=== PATIENT | male | born 1950 ===

== ENCOUNTER 2018-07-31 20:11 | Inpatient (IN) | payer MEDICARE ==
[~2018-07-31] VITALS: Ht 182.9 cm; Wt 93.9 kg
[2018-07-31 20:48] LABS: BASOPHILS ABSOLUTE AUTO 0.04 K/mm3 (0.00-0.23); BASOPHILS PERCENT AUTO 1 % (0-2); EOSINOPHILS ABSOLUTE AUTO 0.14 K/mm3 (0.00-0.68); EOSINOPHILS PERCENT AUTO 2 % (0-6); Hematocrit 38.7 % (37.0-53.0); Hemoglobin 13.3 g/dL (13.5-17.5); IMMATURE GRAN ABSOLUTE AUTO 0.02 K/mm3 (0.00-0.10); IMMATURE GRAN PERCENT AUTO 0 % (0-1); LYMPHOCYTES ABSOLUTE AUTO 2.34 K/mm3 (0.84-5.20); LYMPHOCYTES PERCENT AUTO 30 % (21-46); MONOCYTES ABSOLUTE AUTO 0.72 K/mm3 (0.16-1.47); MONOCYTES PERCENT AUTO 9 % (4-13); Mean Corpuscular HGB 29.8 pg (26.0-34.0); Mean Corpuscular HGB Conc 34.4 g/dL (31.5-36.5); Mean Corpuscular Volume 87 fL (80-100); Mean Platelet Volume 10.4 fL (9.1-12.4); NEUTROPHILS ABSOLUTE AUTO 4.54 K/mm3 (1.96-9.15); NEUTROPHILS PERCENT AUTO 58 % (41-73); Platelet Count 134 K/mm3 (150-400); RDW Coefficient Variation 12.5 % (11.7-14.2); RDW Standard Deviation 39.8 fL (35.1-46.3); Red Blood Cell Count 4.46 M/mm3 (4.30-5.90)
[2018-07-31 20:59] LABS: International Normalized Ratio 1.06; Prothrombin Time Results 11.2 Sec (9.7-11.5)
[2018-07-31] MEDS ORDERED: LISI20 PO (21:01)
[2018-07-31 21:51] LABS: Source, Urine Clean Catch
[2018-07-31 21:52] LABS: Albumin, Blood 3.5 g/dL (3.4-5.0); Bilirubin, Total 0.8 mg/dL (0.1-1.0); Bun/Creatinine Ratio 14.4 (12.0-20.0); Calcium, Blood 8.7 mg/dL (8.5-10.1); Creatinine, Blood 1.53 mg/dL (0.60-1.20); Globulin, Blood 3.6 g/dL (2.2-4.0); Potassium, Blood 3.9 mmol/L (3.5-5.5); Total Protein, Blood 7.1 g/dL (6.4-8.2)
[2018-07-31 21:59] LABS: Bilirubin, Urine Neg (Neg); Blood, Urine 2+ (Neg); Glucose Qualitative, Urine Neg (Neg); Ketones, Urine Neg (Neg); Leukocyte Esterase, Urine Neg (Neg); Nitrite, Urine Neg (Neg); Protein, Urine 3+ (Neg); Specific Gravity, Urine 1.005 (1.003-1.022); Urobilinogen, Urine NORM (Normal)
[2018-07-31 22:07] LABS: Appearance, Urine Clear (Clear); Color, Urine Yellow (P-Yellow)
[2018-07-31 22:08] LABS: Bacteria Not Seen /hpf; Red Blood Cells, Urine 0-2 /hpf (0-2); Squamous Epithelial Cells Not Seen /hpf (Few); White Blood Cells, Urine Not Seen /hpf (0-5)
[2018-07-31] MEDS ORDERED: ZOLP5 PO (23:45)
[2018-07-31] MEDS ORDERED: BAYER CHEWABLE81 MG PO (23:47)
[2018-07-31] MEDS ORDERED: METF500C PO (23:49)
[2018-08-01 05:08] LABS: Hematocrit 38.1 % (37.0-53.0); Hemoglobin 12.5 g/dL (13.5-17.5); Mean Corpuscular HGB 29.3 pg (26.0-34.0); Mean Corpuscular HGB Conc 32.8 g/dL (31.5-36.5); Mean Corpuscular Volume 89 fL (80-100); RDW Coefficient Variation 12.7 % (11.7-14.2); RDW Standard Deviation 41.8 fL (35.1-46.3); Red Blood Cell Count 4.27 M/mm3 (4.30-5.90); White Blood Cell Count 6.96 K/mm3 (4.00-11.30)
[2018-08-01 05:17] LABS: Platelet Count 117 K/mm3 (150-400)
[2018-08-01 05:40] LABS: Albumin, Blood 3.1 g/dL (3.4-5.0); Bilirubin, Total 0.8 mg/dL (0.1-1.0); Bun/Creatinine Ratio 12.9 (12.0-20.0); Calcium, Blood 8.1 mg/dL (8.5-10.1); Creatinine, Blood 1.39 mg/dL (0.60-1.20); Globulin, Blood 3.1 g/dL (2.2-4.0); Total Protein, Blood 6.2 g/dL (6.4-8.2)
--- NOTE | 2018-08-01 05:46 | NUR ---
SHIFT SUMMARY PT HAD DIFFICULTY FALLING ASLEEP EVEN AFTER ADMINISTERING AMBIEN PER ORDERS, PT FINALLY FELL ASLEEP THIS AM AROUND 0330. PT IS AOX4 W/SLURRED SPEECH. PT GAIT IS UNSTEADY & PT REPORTS FEELING DIZZY, PT SBA W/AMBULATION FOR SAFETY. DENIES N/V OR SOB. REPORTS 5/10 PAIN IN BACK OF HEAD/NECK. CALL LIGHT IN REACH & GIRLFRIEND @BEDSIDE.
--- NOTE | 2018-08-01 11:09 | NUR ---
ECHOCARDIOGRAM COMPLETE
--- NOTE | 2018-08-01 18:26 | NUR ---
SHIFT SUMMARY NO ACUTE CHANGES. PATIENT HAD ECHOCARDIOGRAM AND MRI TODAY. PATIENT CONTINUES TO HAVE SLURRED SPEECH AND UNSTEADY GAIT BUT THE SEVERITY HAS NOT INCREASED. SPEECH EVAL DONE TODAY. GIRLFRIEND IN ROOM MOST OF DAY. CALL LIGHT IN REACH, WILL CONTINUE TO MONITOR.
[2018-08-02 05:04] LABS: BASOPHILS ABSOLUTE AUTO 0.04 K/mm3 (0.00-0.23); BASOPHILS PERCENT AUTO 1 % (0-2); EOSINOPHILS ABSOLUTE AUTO 0.12 K/mm3 (0.00-0.68); EOSINOPHILS PERCENT AUTO 2 % (0-6); Hematocrit 37.3 % (37.0-53.0); Hemoglobin 12.3 g/dL (13.5-17.5); IMMATURE GRAN ABSOLUTE AUTO 0.01 K/mm3 (0.00-0.10); IMMATURE GRAN PERCENT AUTO 0 % (0-1); LYMPHOCYTES ABSOLUTE AUTO 1.14 K/mm3 (0.84-5.20); LYMPHOCYTES PERCENT AUTO 18 % (21-46); MONOCYTES ABSOLUTE AUTO 0.72 K/mm3 (0.16-1.47); MONOCYTES PERCENT AUTO 12 % (4-13); Mean Corpuscular HGB 29.1 pg (26.0-34.0); Mean Corpuscular Volume 88 fL (80-100); Mean Platelet Volume 9.9 fL (9.1-12.4); NEUTROPHILS ABSOLUTE AUTO 4.25 K/mm3 (1.96-9.15); NEUTROPHILS PERCENT AUTO 68 % (41-73); Platelet Count 120 K/mm3 (150-400); RDW Coefficient Variation 12.4 % (11.7-14.2); RDW Standard Deviation 40.9 fL (35.1-46.3); Red Blood Cell Count 4.22 M/mm3 (4.30-5.90); White Blood Cell Count 6.28 K/mm3 (4.00-11.30)
[2018-08-02 05:34] LABS: Alanine Aminotransfer (ALT/SGP 60 U/L (12-78); Albumin, Blood 3.4 g/dL (3.4-5.0); Albumin/Globulin Ratio 1.1 (0.8-1.8); Alk Phos 88 U/L (50-136); Anion Gap 7 mmol/L (6-16); Aspartate Aminotrans (AST/SGOT 70 U/L (12-37); Bilirubin, Total 1.4 mg/dL (0.1-1.0); Blood Urea Nitrogen 13 mg/dL (8-24); Bun/Creatinine Ratio 9.2 (12.0-20.0); CHOL/HDL RATIO 4.5; CO2, Blood 24 mmol/L (21-32); Calcium, Blood 8.3 mg/dL (8.5-10.1); Chloride, Blood 111 mmol/L (98-108); Cholesterol 126 mg/dL (50-200); Creatinine, Blood 1.41 mg/dL (0.60-1.20); Globulin, Blood 3.2 g/dL (2.2-4.0); Glomerular Filtration Rate 53 (60-); Glucose, Blood 117 mg/dL (70-99); HDL Cholesterol 28 mg/dL (>39); LDL/HDL RATIO 2.2; Low Density Lipoprotein Chol 61 mg/dL (0-110); Magnesium, Blood 1.9 mg/dL (1.6-2.4); Potassium, Blood 3.9 mmol/L (3.5-5.5); Sodium, Blood 142 mmol/L (136-145); Total Protein, Blood 6.6 g/dL (6.4-8.2); Triglycerides 187 mg/dL (30-160); Very Low Density Lipoprot Chol 37 mg/dL (6-32)
--- NOTE | 2018-08-02 05:50 | NUR ---
SHIFT SUMMARY PT REPORTS HE SLEPT WELL T/O NIGHT AFTER TAKING AMBIEN PER ORDERS. AOX4. VSS. DENIES N/V OR SOB. PT REPORTS 6/10 PAIN IN BACK OF NECK, ALONG W/CHRONIC JOINT PAIN & BACK PAIN, MEDICATED W/TYLENOL 1X PER ORDERS. PT & GIRLFRIEND REPORT THEY FEEL SLURRED SPEECH HAS IMPROVED THIS AM. PT STILL HAS UNSTEADY GAIT & IS A SBA W/AMBULATION. CALL LIGHT IN REACH & BED IN LOWEST POSITION.
[2018-08-02] MEDS ORDERED: ATOR40TA PO (12:38)
[2018-08-02] MEDS ORDERED: CLOP75 PO (12:38)
--- NOTE | 2018-08-02 12:57 | NUR ---
SUMMARY/DISCHARGE PT DISCHARGED TO HOME, PT AND SIGNIFICANT OTHER VERBALIZED UNDERSTANDING OF DISCHARGE INSTRUCTIONS REGARDING MEDICATIONS AND FOLLOW UP APPOINTMENTS, PT TAKEN OUT SAFELY VIA WHEELCHAIR
== END 2018-08-02 14:15 | disposition home or self-care (01) | DRG 65 ==
LOC: ER 20:11 → MEDS 20:12 → ER 20:12 → MEDS 23:34 → ENPENDDIS 08-02 12:35 → MEDS 08-02 14:15
PROVIDERS: Emergency Medicine; Internal Medicine; ADMIT Internal Medicine
DX: I63.9 Cerebral infarction, unspecified (principal); I69.354 Hemiplegia and hemiparesis following cerebral infarction affecting left non-dominant side; R47.81 Slurred speech; F17.210 Nicotine dependence, cigarettes, uncomplicated; E11.22 Type 2 diabetes mellitus with diabetic chronic kidney disease; I12.9 Hypertensive chronic kidney disease with stage 1 through stage 4 chronic kidney disease, or unspecified chronic kidney disease; N18.9 Chronic kidney disease, unspecified; Z79.82 Long term (current) use of aspirin; Z79.899 Other long term (current) drug therapy; Z88.1 Allergy status to other antibiotic agents
CPT/HCPCS: 36415; 70450; 70496; 70498; 70551; 80053; 80061; 81001; 82947; 83735; 84443; 85025; 85027; 85610; 92610; 93005; 93010; 93306; 96361; 96372; 96374; 96375; 99285-25; G0378; G0480; J1650; J7030; Q9967

== ENCOUNTER 2018-09-08 22:37 | Observation (INO) | payer MEDICARE ==
[~2018-09-08] VITALS: Ht 188 cm; Wt 94.0 kg
[~2018-09-08 22:37] MED LIST: ATOR40TA PO; BAYER CHEWABLE81 MG PO; CLOP75 PO; LISI20 PO; METF500C PO; ZOLP5 PO
[2018-09-08] MEDS ORDERED: AMLO10 PO (22:49)
[2018-09-08 23:01] LABS: BASOPHILS ABSOLUTE AUTO 0.03 K/mm3 (0.00-0.23); BASOPHILS PERCENT AUTO 0 % (0-2); EOSINOPHILS ABSOLUTE AUTO 0.03 K/mm3 (0.00-0.68); EOSINOPHILS PERCENT AUTO 0 % (0-6); Hematocrit 38.6 % (37.0-53.0); Hemoglobin 13.1 g/dL (13.5-17.5); IMMATURE GRAN ABSOLUTE AUTO 0.04 K/mm3 (0.00-0.10); IMMATURE GRAN PERCENT AUTO 0 % (0-1); LYMPHOCYTES ABSOLUTE AUTO 1.96 K/mm3 (0.84-5.20); LYMPHOCYTES PERCENT AUTO 15 % (21-46); MONOCYTES PERCENT AUTO 9 % (4-13); Mean Corpuscular HGB 29.4 pg (26.0-34.0); Mean Corpuscular HGB Conc 33.9 g/dL (31.5-36.5); Mean Corpuscular Volume 87 fL (80-100); NEUTROPHILS ABSOLUTE AUTO 9.48 K/mm3 (1.96-9.15); NEUTROPHILS PERCENT AUTO 75 % (41-73); Platelet Count 117 K/mm3 (150-400); RDW Coefficient Variation 12.4 % (11.7-14.2); RDW Standard Deviation 39.8 fL (35.1-46.3); Red Blood Cell Count 4.45 M/mm3 (4.30-5.90); White Blood Cell Count 12.74 K/mm3 (4.00-11.30)
[2018-09-08 23:15] LABS: Albumin, Blood 3.1 g/dL (3.4-5.0); Albumin/Globulin Ratio 0.8 (0.8-1.8); Bilirubin, Total 1.8 mg/dL (0.1-1.0); Bun/Creatinine Ratio 16.8 (12.0-20.0); Calcium, Blood 8.7 mg/dL (8.5-10.1); Creatinine, Blood 1.31 mg/dL (0.60-1.20); Globulin, Blood 3.9 g/dL (2.2-4.0); Potassium, Blood 3.6 mmol/L (3.5-5.5)
[2018-09-09 03:04] LABS: Influenza A Negative (NEGATIVE); Influenza B Negative (NEGATIVE)
[2018-09-09 09:02] LABS: Source, Urine Catheter
[2018-09-09 09:11] LABS: Appearance, Urine Clear (Clear); Bilirubin, Urine Neg (Neg); Blood, Urine 3+ (Neg); Color, Urine Yellow (P-Yellow); Glucose Qualitative, Urine Neg (Neg); Ketones, Urine Neg (Neg); Leukocyte Esterase, Urine Neg (Neg); Nitrite, Urine Neg (Neg); Protein, Urine 4+ (Neg); Specific Gravity, Urine 1.015 (1.003-1.022); Urobilinogen, Urine NORM (Normal)
[2018-09-09 09:28] LABS: Bacteria Rare /hpf; Squamous Epithelial Cells Rare /hpf (Few); White Blood Cells, Urine 0-2 /hpf (0-5)
[2018-09-09 11:16] LABS: Hematocrit 37.4 % (37.0-53.0); Hemoglobin 12.5 g/dL (13.5-17.5); Mean Corpuscular HGB 29.1 pg (26.0-34.0); Mean Corpuscular HGB Conc 33.4 g/dL (31.5-36.5); Mean Corpuscular Volume 87 fL (80-100); Mean Platelet Volume 10.2 fL (9.1-12.4); Platelet Count 115 K/mm3 (150-400); RDW Coefficient Variation 12.6 % (11.7-14.2); RDW Standard Deviation 40.3 fL (35.1-46.3); Red Blood Cell Count 4.29 M/mm3 (4.30-5.90); White Blood Cell Count 11.01 K/mm3 (4.00-11.30)
[2018-09-09 11:26] LABS: Alanine Aminotransfer (ALT/SGP 36 U/L (12-78); Albumin, Blood 2.7 g/dL (3.4-5.0); Albumin/Globulin Ratio 0.7 (0.8-1.8); Alk Phos 95 U/L (50-136); Anion Gap 8 mmol/L (6-16); Aspartate Aminotrans (AST/SGOT 27 U/L (12-37); Bilirubin, Total 1.9 mg/dL (0.1-1.0); Blood Urea Nitrogen 19 mg/dL (8-24); Bun/Creatinine Ratio 15.3 (12.0-20.0); CO2, Blood 25 mmol/L (21-32); Calcium, Blood 8.3 mg/dL (8.5-10.1); Chloride, Blood 109 mmol/L (98-108); Creatinine, Blood 1.24 mg/dL (0.60-1.20); Globulin, Blood 3.9 g/dL (2.2-4.0); Glomerular Filtration Rate >60 (60-); Glucose, Blood 123 mg/dL (70-99); Potassium, Blood 3.6 mmol/L (3.5-5.5); Sodium, Blood 142 mmol/L (136-145); Total Protein, Blood 6.6 g/dL (6.4-8.2)
[2018-09-09] MEDS ORDERED: ESCI10 PO (12:52)
--- NOTE | 2018-09-09 17:52 | NUR ---
SHIFT SUMMARY RECEIVED HANDOFF FROM ER NURSE BREANNA. PT ADMITTED FOR WEAKNESS/DYSPNEA ON EXERTION. POSSIBLE PNEUMONIA IN THE LEFT LOWER LOBE. PT ON LAVAQUIN/FLAGYL EMPIRIC IV ANTIBIOTICS. RECENT HX OF STROKE. HX: HTN, CKD, DM2 (METFORMIN [place]), SMOKER (2 CIGARETTES PER DAY). HE IS INDEPENDENT IN ROOM AND TO BATHROOM. HE IS ACHS ON LOW SLIDING SCALE. HE IS ON DYSPHAGIA PRECAUTIONS DUE TO SPEECH EVAL: NO STRAWS, SOFT/BITE SIZE DIET. FAMILY REPORTS HE HAS BEEN CHOKING SINCE HIS STROKE. TOMORROW PT, OT, AND ST WILL EVALUATE. HE IS ON LOVENOX FOR DVT PREVENTION. HE IS A FULL CODE. HE HAS A 20 GAUGE IV IN THE LEFT FOREARM.
[2018-09-09 18:18] LABS: Source, Urine Clean Catch
[2018-09-09 18:22] LABS: Bilirubin, Urine Neg (Neg); Blood, Urine 4+ (Neg); Color, Urine Yellow (P-Yellow); Glucose Qualitative, Urine 2+ (Neg); Ketones, Urine 1+ (Neg); Leukocyte Esterase, Urine 1+ (Neg); Nitrite, Urine Neg (Neg); Protein, Urine 4+ (Neg); Urobilinogen, Urine NORM (Normal)
[2018-09-09 19:12] LABS: Appearance, Urine Hazy (Clear)
[2018-09-09 19:13] LABS: Bacteria Few /hpf; Squamous Epithelial Cells Few /hpf (Few); White Blood Cells, Urine 0-2 /hpf (0-5)
[2018-09-10 05:21] LABS: BASOPHILS ABSOLUTE AUTO 0.03 K/mm3 (0.00-0.23); BASOPHILS PERCENT AUTO 0 % (0-2); EOSINOPHILS ABSOLUTE AUTO 0.14 K/mm3 (0.00-0.68); EOSINOPHILS PERCENT AUTO 2 % (0-6); Hematocrit 35.3 % (37.0-53.0); Hemoglobin 11.9 g/dL (13.5-17.5); IMMATURE GRAN ABSOLUTE AUTO 0.03 K/mm3 (0.00-0.10); IMMATURE GRAN PERCENT AUTO 0 % (0-1); LYMPHOCYTES ABSOLUTE AUTO 2.63 K/mm3 (0.84-5.20); LYMPHOCYTES PERCENT AUTO 28 % (21-46); MONOCYTES ABSOLUTE AUTO 1.03 K/mm3 (0.16-1.47); MONOCYTES PERCENT AUTO 11 % (4-13); Mean Corpuscular HGB 28.7 pg (26.0-34.0); Mean Corpuscular HGB Conc 33.7 g/dL (31.5-36.5); Mean Corpuscular Volume 85 fL (80-100); Mean Platelet Volume 10.3 fL (9.1-12.4); NEUTROPHILS PERCENT AUTO 59 % (41-73); Platelet Count 131 K/mm3 (150-400); RDW Coefficient Variation 12.5 % (11.7-14.2); RDW Standard Deviation 38.6 fL (35.1-46.3); Red Blood Cell Count 4.14 M/mm3 (4.30-5.90); White Blood Cell Count 9.46 K/mm3 (4.00-11.30)
[2018-09-10 05:55] LABS: Bun/Creatinine Ratio 16.2 (12.0-20.0); Calcium, Blood 8.3 mg/dL (8.5-10.1); Creatinine, Blood 1.36 mg/dL (0.60-1.20); Potassium, Blood 3.7 mmol/L (3.5-5.5)
--- NOTE | 2018-09-10 06:16 | NUR ---
SHIFT SUMMARY A/O, ABLE TO MAKE NEEDS KNOWN. COOPERATIVE WITH CARE. CALLS AND ANSWERS QUESTIONS APPROPRIATELY. NO C/O PAIN/DISCOMFORT. INDEPENDENT IN THE ROOM. AT BEDSIDE. HYPERTENSIVE THIS AM; HOWEVER, ON TREND WITH PREVIOUS PRESSURES. APPEARED TO REST MUCH OF SHIFT. NO ACUTE CHANGES NOTED OVERNIGHT. BED IN LOWEST POSITION. CALL LIGHT AND BELONGINGS WITHIN REACH. WCTM. REPORT TO ONCOMING RN.
--- NOTE | 2018-09-10 14:20 | NUR ---
MEDICATIONS CORRECTED BETWEEN PATIENT AND AND ARE CURRENTLY ACCURATE. AMBULATING WITH IN HALLS OFF AND ON. PLEASANT. PREFERS TO GIVE INSULIN HIMSELF. SUPPORTIVE AT SIDE.
--- NOTE | 2018-09-11 04:30 | NUR ---
SHIFT SUMMARY A/O X4, ABLE TO MAKE NEEDS KNOWN. COOPERATIVE WITH CARE. CALLS AND ANSWERS QUESTIONS APPROPRIATELY. NO C/O PAIN/DISCOMFORT. INDEPENDENT IN ROOM. S/O AT BEDSIDE. REMAINS HYPERTENSIVE. BLOOD SUGAR 137; NO COVERAGE INDICATED. ASKED THAT HE NOT BE DISTURBED T/O NIGHT. APPEARED TO REST MUCH OF SHIFT. NO ACUTE CHANGES NOTED. BED IN LOWEST POSITION. CALL LIGHT AND BELONGINGS WITHIN REACH. WCTM. REPORT TO ONCOMING RN.
[2018-09-11 05:48] LABS: Bun/Creatinine Ratio 15.7 (12.0-20.0); Calcium, Blood 8.5 mg/dL (8.5-10.1); Creatinine, Blood 1.34 mg/dL (0.60-1.20)
[2018-09-11] MEDS ORDERED: LEVFLO500 PO (11:09)
--- NOTE | 2018-09-11 11:35 | NUR ---
DISCHARGE NOTE PT DISCHARGED TO HOME WITH SPOUSE PRESENT. PT LEFT ROOM WITH WHEELCHAIR AT 1135 WITH HEAD OF OPERATION AND LOGISTICS ESCORT. PT EDUCATED ON NEW MEDICATIONS, PREVENTING FALLS AT HOME AND DECONDITIONING. PT INSTRUCTED AND AGREES TO LOTTERY MANAGER MEDS FROM PHARMACY. IV DC'D AND BELONGINGS RETURNED.
== END 2018-09-11 11:34 | disposition home or self-care (01) ==
LOC: ER 22:37 → ERHOLD 22:38 → MEDS 22:38 → ER 09-09 01:55 → MEDS 09-09 01:55 → ERHOLD 09-09 01:55 → MEDS 09-09 16:44 → ERHOLD 09-09 16:50 → MEDS 09-09 16:50 → ENPENDDIS 09-11 10:30 → MEDS 09-11 11:34
PROVIDERS: Emergency Medicine; Hospitalist; ADMIT Internal Medicine
DX: J18.1 Lobar pneumonia, unspecified organism (principal); R53.1 Weakness; I12.9 Hypertensive chronic kidney disease with stage 1 through stage 4 chronic kidney disease, or unspecified chronic kidney disease; E11.22 Type 2 diabetes mellitus with diabetic chronic kidney disease; N18.3 Chronic kidney disease, stage 3 (moderate); Z86.73 Personal history of transient ischemic attack (TIA), and cerebral infarction without residual deficits; Z79.899 Other long term (current) drug therapy; Z79.82 Long term (current) use of aspirin; Z79.02 Long term (current) use of antithrombotics/antiplatelets; Z88.1 Allergy status to other antibiotic agents; F17.210 Nicotine dependence, cigarettes, uncomplicated
CPT/HCPCS: 36415; 70450; 71046; 80048; 80053; 81001; 82947; 83605; 84145; 85025; 85027; 87040; 87086; 87804; 92526; 92610; 93005; 93010; 96361; 96365; 96366; 96372; 96372-59; 96375; 96376; 97116; 97161; 97165; 99285-25; G0378; J1650; J1956; J2543; J7030; J7050

== ENCOUNTER 2018-12-28 22:06 | Inpatient (IN) | payer MEDICARE ==
[~2018-12-28] VITALS: Ht 188 cm; Wt 89.3 kg
[~2018-12-28 22:06] MED LIST changes: +AMLO10 PO; +Aspirin EC81 MG PO; -BAYER CHEWABLE81 MG PO; +ESCI10 PO; +LEVFLO500 PO
[2018-12-28 23:20] LABS: BASOPHILS ABSOLUTE AUTO 0.04 K/mm3 (0.00-0.23); BASOPHILS PERCENT AUTO 0 % (0-2); EOSINOPHILS ABSOLUTE AUTO 0.45 K/mm3 (0.00-0.68); EOSINOPHILS PERCENT AUTO 2 % (0-6); Hematocrit 38.8 % (37.0-53.0); Hemoglobin 12.8 g/dL (13.5-17.5); IMMATURE GRAN PERCENT AUTO 1 % (0-1); LYMPHOCYTES ABSOLUTE AUTO 1.77 K/mm3 (0.84-5.20); LYMPHOCYTES PERCENT AUTO 9 % (21-46); MONOCYTES ABSOLUTE AUTO 1.36 K/mm3 (0.16-1.47); MONOCYTES PERCENT AUTO 7 % (4-13); Mean Corpuscular HGB 28.3 pg (26.0-34.0); Mean Corpuscular Volume 86 fL (80-100); Mean Platelet Volume 10.6 fL (9.1-12.4); NEUTROPHILS ABSOLUTE AUTO 15.11 K/mm3 (1.96-9.15); NEUTROPHILS PERCENT AUTO 80 % (41-73); Platelet Count 202 K/mm3 (150-400); RDW Coefficient Variation 13.3 % (11.7-14.2); RDW Standard Deviation 41.3 fL (35.1-46.3); Red Blood Cell Count 4.52 M/mm3 (4.30-5.90); White Blood Cell Count 18.83 K/mm3 (4.00-11.30)
[2018-12-28 23:42] LABS: Albumin, Blood 3.2 g/dL (3.4-5.0); Albumin/Globulin Ratio 0.8 (0.8-1.8); Bilirubin, Total 1.6 mg/dL (0.1-1.0); Calcium, Blood 9.2 mg/dL (8.5-10.1); Creatinine, Blood 3.01 mg/dL (0.60-1.20); Globulin, Blood 4.1 g/dL (2.2-4.0); Potassium, Blood 4.7 mmol/L (3.5-5.5); Total Protein, Blood 7.3 g/dL (6.4-8.2)
[2018-12-29 02:25] LABS: Source, Urine Clean Catch
[2018-12-29 02:27] LABS: Bilirubin, Urine Neg (Neg); Blood, Urine 2+ (Neg); Glucose Qualitative, Urine 1+ (Neg); Ketones, Urine Neg (Neg); Leukocyte Esterase, Urine Neg (Neg); Nitrite, Urine Neg (Neg); Protein, Urine 4+ (Neg); Urobilinogen, Urine NORM (Normal)
[2018-12-29 02:35] LABS: Color, Urine Yellow (P-Yellow)
[2018-12-29 02:36] LABS: Amorphous Light (0-Heavy); Appearance, Urine Hazy (Clear); Bacteria Rare /hpf; Mucus Light (0-Heavy); Red Blood Cells, Urine 0-2 /hpf (0-2); Squamous Epithelial Cells Few /hpf (Few)
[2018-12-29 02:37] LABS: Hyaline Casts 25-50 /lpf (0-2); Spermatozoa Many /hpf
[2018-12-29 06:29] LABS: BASOPHILS ABSOLUTE AUTO 0.02 K/mm3 (0.00-0.23); BASOPHILS PERCENT AUTO 0 % (0-2); EOSINOPHILS ABSOLUTE AUTO 0.15 K/mm3 (0.00-0.68); EOSINOPHILS PERCENT AUTO 1 % (0-6); Hematocrit 36.3 % (37.0-53.0); Hemoglobin 11.9 g/dL (13.5-17.5); IMMATURE GRAN ABSOLUTE AUTO 0.07 K/mm3 (0.00-0.10); IMMATURE GRAN PERCENT AUTO 1 % (0-1); LYMPHOCYTES ABSOLUTE AUTO 1.71 K/mm3 (0.84-5.20); LYMPHOCYTES PERCENT AUTO 12 % (21-46); MONOCYTES PERCENT AUTO 8 % (4-13); Mean Corpuscular HGB 28.1 pg (26.0-34.0); Mean Corpuscular HGB Conc 32.8 g/dL (31.5-36.5); Mean Corpuscular Volume 86 fL (80-100); Mean Platelet Volume 10.5 fL (9.1-12.4); NEUTROPHILS ABSOLUTE AUTO 11.09 K/mm3 (1.96-9.15); NEUTROPHILS PERCENT AUTO 78 % (41-73); Platelet Count 167 K/mm3 (150-400); RDW Coefficient Variation 13.4 % (11.7-14.2); RDW Standard Deviation 41.2 fL (35.1-46.3); Red Blood Cell Count 4.23 M/mm3 (4.30-5.90); White Blood Cell Count 14.24 K/mm3 (4.00-11.30)
[2018-12-29] MEDS ORDERED: ATOR40TA PO (06:40)
[2018-12-29] MEDS ORDERED: TOUJEO SOL300 UNIT/1 SC (06:41)
[2018-12-29 06:46] LABS: Albumin, Blood 2.8 g/dL (3.4-5.0); Albumin/Globulin Ratio 0.8 (0.8-1.8); Bilirubin, Total 1.6 mg/dL (0.1-1.0); Bun/Creatinine Ratio 15.8 (12.0-20.0); Calcium, Blood 8.6 mg/dL (8.5-10.1); Creatinine, Blood 3.23 mg/dL (0.60-1.20); Globulin, Blood 3.7 g/dL (2.2-4.0); Potassium, Blood 4.5 mmol/L (3.5-5.5); Total Protein, Blood 6.5 g/dL (6.4-8.2); Triglycerides 94 mg/dL (30-160)
--- NOTE | 2018-12-29 07:56 | NUR ---
12/29/18 0645 PT ARRIVED TO FLOOR AT 0540 FROM ER. NO FAMILY WITH HIM WHEN HE ARRIVED. RN ATTEMPTED TO COMPLETE ADMISSION PAPERWORK BUT PT DID NOT KNOW MEDS HE TAKES AND STATED TO "ASK MY ". HERE ON AND OFF. WILL INFORM DAY RN.
--- NOTE | 2018-12-29 16:08 | NUR ---
SHIFT SUMMARY. A&OX3, INDEPENDENT IN ROOM, GIRLFRIEND IN ROOM. PT C/O LUQ ABD PAIN TWICE THIS SHIFT, MANAGED WELL WITH CURRENT ORDERS. NO N/V/D. NO BM THIS SHIFT. PT SHOWERED THIS AFTERNOON INDEPENDENTLY. PT TOLERATING CLEAR LIQUIDS AT LUNCH WITHOUT ISSUE. CONTINUES WITH NS IV AT 125/HR. NO NEW CHANGES OR CONCERNS. PT REPORTS FEELING MUCH BETTER BY THIS AFTERNOON.
--- NOTE | 2018-12-30 04:28 | NUR ---
SHIFT SUMMARY PT RESTING QUIETLY AT START OF SHIFT. PT'S RETURNED TO RM DURING SHIFT REPORT. PT ADMITTED FOR PANCREATITIS, ABD PAIN, N/V/D, AND ANGÉLICA. PT TOLERATING CL DIET W/O NAUSEA OR VOMITING. PT VERY WEAK, DECONDITIONED. UNABLE TO EVEN GET UP TO EOB W/O FALLING OVER. PT WANTING TO TAKE ANOTHER SHOWER TONIGHT, BECAUSE HE SOILED HIMSELF WITH THE URINAL. BUT PT VERY UNSTEADY AND WEAK. PT BECAME IRRITABLE AND IMPULSIVE FOR A WHILE AT START OF SHIFT, REFUSING 'S ASSISTANSE WELL. PT FINALLY AGREEABLE TO ASSISTING HIM WITH CLEAN CLOTHES. PT LATER ATTEMPTING TO BE NONCOMPLIANT WITH INSULIN AGAIN AT HS, TAKING INSULIN PEN AND STARTING TO INCREASE NUMBER OF UNITS TO BE GIVEN. ATTEMPTED TO EDU PT; GRUMBLING, PT AGREED TO ORDERED DOSE. PT ASKED NOT TO BE WOKE FOR CARE UNTIL 0530 AND HAS CONTINUED TO REST WELL, SINCE GOING TO SLEEP. CALL LT IN REACH. SLEEPING IN RM AT BS.
[2018-12-30 05:55] LABS: BASOPHILS ABSOLUTE AUTO 0.02 K/mm3 (0.00-0.23); BASOPHILS PERCENT AUTO 0 % (0-2); EOSINOPHILS ABSOLUTE AUTO 0.04 K/mm3 (0.00-0.68); EOSINOPHILS PERCENT AUTO 0 % (0-6); Hemoglobin 10.6 g/dL (13.5-17.5); IMMATURE GRAN ABSOLUTE AUTO 0.13 K/mm3 (0.00-0.10); IMMATURE GRAN PERCENT AUTO 1 % (0-1); LYMPHOCYTES ABSOLUTE AUTO 1.49 K/mm3 (0.84-5.20); LYMPHOCYTES PERCENT AUTO 13 % (21-46); MONOCYTES ABSOLUTE AUTO 1.09 K/mm3 (0.16-1.47); MONOCYTES PERCENT AUTO 9 % (4-13); Mean Corpuscular HGB 28.3 pg (26.0-34.0); Mean Corpuscular HGB Conc 33.1 g/dL (31.5-36.5); Mean Corpuscular Volume 86 fL (80-100); Mean Platelet Volume 10.5 fL (9.1-12.4); NEUTROPHILS ABSOLUTE AUTO 9.19 K/mm3 (1.96-9.15); NEUTROPHILS PERCENT AUTO 77 % (41-73); Platelet Count 130 K/mm3 (150-400); Red Blood Cell Count 3.74 M/mm3 (4.30-5.90); White Blood Cell Count 11.96 K/mm3 (4.00-11.30)
[2018-12-30 06:28] LABS: Albumin, Blood 2.6 g/dL (3.4-5.0); Albumin/Globulin Ratio 0.7 (0.8-1.8); Bilirubin, Total 2.4 mg/dL (0.1-1.0); Calcium, Blood 8.6 mg/dL (8.5-10.1); Creatinine, Blood 1.94 mg/dL (0.60-1.20); Globulin, Blood 3.8 g/dL (2.2-4.0); Potassium, Blood 3.9 mmol/L (3.5-5.5); Total Protein, Blood 6.4 g/dL (6.4-8.2)
[2018-12-30 13:03] LABS: Adenovirus F 40/41 Not Detected (NOT DETECT); Astrovirus Not Detected (NOT DETECT); Campylobacter Sp Not Detected (NOT DETECT); Cryptosporidium Not Detected (NOT DETECT); Cyclospora Cayetanensis Not Detected (NOT DETECT); E. Coli O157 Not Detected (NOT DETECT); Entamoeba Histolytica Not Detected (NOT DETECT); Enteroaggregative E. coli-EAEC Not Detected (NOT DETECT); Enteropathogenic E. coli-EPEC Not Detected (NOT DETECT); Enterotoxigenic E. coli-ETEC Not Detected (NOT DETECT); Giardia Lamblia Not Detected (NOT DETECT); Norovirus GI/GII Not Detected (NOT DETECT); Plesiomonas Shigelloides Not Detected (NOT DETECT); Rotavirus A Not Detected (NOT DETECT); Salmonella Sp Not Detected (NOT DETECT); Sapovirus Not Detected (NOT DETECT); Shiga Toxin-prod E. coli-STEC Not Detected (NOT DETECT); Shigella/Enteroin E. coli-EIEC Not Detected (NOT DETECT); Vibrio Cholerae Not Detected (NOT DETECT); Vibrio Sp Not Detected (NOT DETECT); Yersinia Enterocolitica Not Detected (NOT DETECT)
--- NOTE | 2018-12-30 16:40 | NUR ---
PT A/OX3, PLEASANT ANCD COOPERATIVE, THE PT IS UP WITH MINIMAL ASSIST TO THE BATHROOM, THE PT WAS UP IN THE ORANTES AMBULATING WITH THE PHYSICAL AND OCCUPATIONAL THERAPIST TODAY, THE PT REPORTED AND WAS MEDICATED FOR MILD PAIN WITH MEALS TODAY, THE PT DENIED ANY N/V, PT APPEARS TO BE BREATHING EASILY ON RA, PTS IS AT THE BEDSIDE, CALL LIGHT IN REACH WILL CONTINUE TO MONITOR AND ASSESS FOR CHANGES
--- NOTE | 2018-12-31 03:45 | NUR ---
SHIFT SUMMARY PT UP TO BTHRM AT START OF SHIFT WITH DIARRHEA. COMPLETE LINEN CHANGE DONE AGAIN, WELL CLOTHES. PT THEN WANTING TO TAKE ANOTHER SHOWER. IV SL AND WRAPPED FOR SHOWER. PT'S VERY HELPFUL IN ASSISTING PT WITH CARE. INCONTINENT OF BOWEL AND BLADDER SEVERAL TIMES THRU OUT THE SHIFT. MULTIPLE BED LINEN AND GOWN CHANGES. PT FREQUENTLY IRRITABLE, NOT WANTING TO BE COMPLIANT WITH CARE. PT ATTEMPTING TO INCREASE INSULIN DOSE AGAIN TONIGHT, TO A RANDOM NUMBER THAT HE FEELS IS ENOUGH. PT BECAME VERY AGITATED AGAIN TONIGHT OVER SCHEDULED INSULIN THRU OUT THE DAY. PT DID NOT DISCUSS WITH MD, DURING THE DAY, HIS CONCERN TO INCREASE INSULIN COVERAGE. DR CALEDRON NOTIFIED OF PT'S REQUEST REGARDING INSULIN. NEW ORDERS RECEIVED TO CHANGE TO HIGH SS COVERAGE AND PT TO DISCUSS INSULIN DOSE WITH DAY TIME MD. PT ALSO C/O BEING HUNGRY AND VERBALIZED HOW MANY DAYS HE HAS GONE WITHOUT FOOD AND BEEN ON LIQUID DIET. DR CALDERON NOTIFIED OF PT'S REQUEST FOR DIET CHANGE. NEW ORDERS RECEIVED. PT HAS CONTINUED TO BE INDEPENDENT IN RM AND TO BTHRM, IMPROVING IN STRENGTH A LITTLE MORE EACH DAY. PT COMPLAINING ABOUT IV PUMP MAKING NOISE AND NOT BEING ABLE TO SLEEP. PT WANTING IV SL. NS BAG COMPLETE AND PT WANTING "UNHOOKED". IV PRESENTLY SL PER PT REQUEST. PT CAN BE VERY IRRITABLE TO STAFF AND , WELL NONCOMPLIANT WITH CARE. CALL LT IN REACH. ABLE TO MAKE NEEDS KNOWN.
[2018-12-31 05:16] LABS: Hematocrit 30.6 % (37.0-53.0); Hemoglobin 9.9 g/dL (13.5-17.5); Mean Corpuscular HGB 27.7 pg (26.0-34.0); Mean Corpuscular HGB Conc 32.4 g/dL (31.5-36.5); Mean Corpuscular Volume 86 fL (80-100); Mean Platelet Volume 10.1 fL (9.1-12.4); Platelet Count 137 K/mm3 (150-400); RDW Coefficient Variation 12.8 % (11.7-14.2); RDW Standard Deviation 39.9 fL (35.1-46.3); Red Blood Cell Count 3.58 M/mm3 (4.30-5.90); White Blood Cell Count 10.71 K/mm3 (4.00-11.30)
[2018-12-31 05:39] LABS: Albumin, Blood 2.2 g/dL (3.4-5.0); Anion Gap 8 mmol/L (6-16); Blood Urea Nitrogen 23 mg/dL (8-24); Bun/Creatinine Ratio 15.4 (12.0-20.0); CO2, Blood 21 mmol/L (21-32); Chloride, Blood 110 mmol/L (98-108); Creatinine, Blood 1.49 mg/dL (0.60-1.20); Glomerular Filtration Rate 50 (60-); Glucose, Blood 191 mg/dL (70-99); Phosphorus, Blood 2.4 mg/dL (2.5-4.9); Potassium, Blood 3.7 mmol/L (3.5-5.5); Sodium, Blood 139 mmol/L (136-145)
--- NOTE | 2018-12-31 07:34 | NUR ---
ASSUMED CARE OF PT- RECIEVED REPORT FROM NIGHT CEDRIC MCKAY. PER REPORT PT ALERT AND ORIENTED. ALSO PER REPORT PT CAN BE INSISTENT WHEN HE WANTS A CHANGE TO HIS CARE, SUCH AN ADVANCE IN DIET, STAFF SPOKE TO THE PT ABOUT AN ADVANCE IN DIET CAUSING ABDOMINAL PAIN AND PT INSISTED IN AN INCREASE IN DIET TO LOW FAT ADA. AFTER EATING A SANDWITCH LAST NIGHT IT WAS REPORTED PT SUFFERED SOME DISCOMFORT. PER REPORT PT WANTED A CHANGE TO INSULIN, THIS WAS CHANGED FROM LOW SLIDING SCALE TO HIGH SLIDING SCALE. PRIOR TO THE CHANGE THE PT REQUESTED THAT STAFF GIVE HIM THE INSULIN PEN AND LET HIM DECIDE WHAT DOSE TO GIVE AND ADMINISTER IT HIMSELF, HE BECAME UPSET (PER REPORT) WHEN NURSING STAFF DECLINED TO DO THIS. BLOOD SUGAR IS 200 THIS MORNING.
--- NOTE | 2018-12-31 10:00 | NUR ---
Initial Visit: Called by pt's nurse, Latoya. She states that the pt and family is requesting to speak about advance directives. On arrival to room, pt is laying in bed with his arm over his face. He is telling me that he is highly irritated. He had a "terrible night." He reports 8 episodes of diarrhea overnight. His girlfriend is at bedside and would like to review directives. Provided POLST form and advance directive forms. Reviewed each. She is familiar with the advance directive; states that she has one at home for herself. Forms left with her. Instructed to call my office number or ask nurse to page me through [employer] if she has questions. Reviewed with nurse Latoya. She is getting an order for immodium or other to stop the diarrhea. Latoya does not have further concerns at this time.
--- NOTE | 2018-12-31 18:29 | NUR ---
SHIFT SUMMARY- PT HAS HAD NO ACUTE CHANGES T/O THE SHIFT, NEW CONSULT FOR GEN SURGERY WAS CALLED, DR LEES CAME TO SEE THE PT, NEW ORDER TO DC ASPIRIN, AND NPO FOR BREAKFAST. WILL PASS ON NPO AT MIDNIGHT. PT ALERT AND ORIENTED AND INDEPENDENT IN THE ROOM. NO CURRENT C/O PAIN. PT HAS ATTEMPTED TO SLEEP T/O THE SHIFT. PER PT SPOUSE PT HAD FREQUENT BMS T/O THE NIGHT. RECIEVED A OT ORDER FOR IMODIUM. PT HAS IV CURRENTLY RUNNING K-PHOS. PT REQUESTED TO BE DISCONNECTED STAFF SPOKE TO HIM ABOUT THE IMPORTANCE OF THE MEDICINE IT SHOULD BE DONE RUNNING BY 1999. PT WILL REQUEST TO GO OUT AT THAT TIME.
--- NOTE | 2019-01-01 04:45 | NUR ---
SHIFT SUMMARY PT HAD NO DIARRHEA NOTED THIS SHIFT. PT WAS ABLE TO GO OUTSIDE TO SMIKE AND WAS IN BETTER SPIRITS AFTERWARDS. PT HAS SLEPT SINCE GOING TO SMOKE. PT HAD NO ISSUES NOTED. PT CURRENTLY SLEEPING IN NO DISTRESS. CALL LIGHT IN REACH.
[2019-01-01 05:18] LABS: BASOPHILS ABSOLUTE AUTO 0.01 K/mm3 (0.00-0.23); BASOPHILS PERCENT AUTO 0 % (0-2); EOSINOPHILS ABSOLUTE AUTO 0.16 K/mm3 (0.00-0.68); EOSINOPHILS PERCENT AUTO 2 % (0-6); Hematocrit 31.2 % (37.0-53.0); Hemoglobin 10.3 g/dL (13.5-17.5); IMMATURE GRAN ABSOLUTE AUTO 0.03 K/mm3 (0.00-0.10); IMMATURE GRAN PERCENT AUTO 0 % (0-1); LYMPHOCYTES ABSOLUTE AUTO 1.66 K/mm3 (0.84-5.20); LYMPHOCYTES PERCENT AUTO 18 % (21-46); MONOCYTES ABSOLUTE AUTO 1.08 K/mm3 (0.16-1.47); MONOCYTES PERCENT AUTO 12 % (4-13); Mean Corpuscular HGB 27.7 pg (26.0-34.0); Mean Corpuscular Volume 84 fL (80-100); Mean Platelet Volume 9.8 fL (9.1-12.4); NEUTROPHILS ABSOLUTE AUTO 6.46 K/mm3 (1.96-9.15); NEUTROPHILS PERCENT AUTO 69 % (41-73); Platelet Count 164 K/mm3 (150-400); RDW Coefficient Variation 12.7 % (11.7-14.2); RDW Standard Deviation 38.6 fL (35.1-46.3); Red Blood Cell Count 3.72 M/mm3 (4.30-5.90)
[2019-01-01 05:39] LABS: Alanine Aminotransfer (ALT/SGP 77 U/L (12-78); Albumin, Blood 2.2 g/dL (3.4-5.0); Albumin/Globulin Ratio 0.6 (0.8-1.8); Alk Phos 178 U/L (50-136); Anion Gap 8 mmol/L (6-16); Aspartate Aminotrans (AST/SGOT 66 U/L (12-37); Bilirubin, Total 1.1 mg/dL (0.1-1.0); Blood Urea Nitrogen 17 mg/dL (8-24); Bun/Creatinine Ratio 12.9 (12.0-20.0); CO2, Blood 23 mmol/L (21-32); Calcium, Blood 8.2 mg/dL (8.5-10.1); Chloride, Blood 110 mmol/L (98-108); Creatinine, Blood 1.32 mg/dL (0.60-1.20); Globulin, Blood 3.8 g/dL (2.2-4.0); Glomerular Filtration Rate 57 (60-); Glucose, Blood 252 mg/dL (70-99); Phosphorus, Blood 2.9 mg/dL (2.5-4.9); Potassium, Blood 3.7 mmol/L (3.5-5.5); Sodium, Blood 141 mmol/L (136-145)
--- NOTE | 2019-01-01 07:43 | NUR ---
ASSUMED CARE OF PT- RECIEVED REPORT FROM NIGHT CEDRIC MCKEON. PER REPORT PT SLEPT WELL T/O THE NIGHT. NO C/O PAIN WERE NOTED. PER NOTE FROM DR LEES PT TP BE NPO AFTER DINNER FRIDAY NIGHT, PLAVIX AND ASPIRIN DC'D. HEPARIN TO CONTINUE UNTIL FRIDAY PRIOR TO PROCEDURE. DIET IS TO ADVANCE TOLLERATED PRIOR TO NPO.
--- NOTE | 2019-01-01 07:59 | NUR ---
SPOKE TO DR LEES- PER PLAN IS FOR PT TO GO FOR PROCEDURE ON FRIDAY, NPO WILL NOT BE UNTIL FRIDAY EVENING AFTER DINNER.
--- NOTE | 2019-01-01 16:31 | NUR ---
SHIFT SUMMARY- PT HAS HAD NO ACUTE CHANGES T/O THE SHIFT. PLAN IS FOR PT TO GO TO SURGERY ON FRIDAY. HEPARIN SHOULD BE HELD THE DAY OF THE PROCEDURE PER DR LEES. PT ALERT AND ORIENTED AND HAS THE CALL LIGHT IN REACH. PT VERY TIRED AND REQUESTS THAT ALL CARE BE GROUPED TOGETHER WHEN POSSIBLE. PT SO IS AT THE BEDSIDE AND ONLY LEAVES FOR BRIEF STENTS OF TIME. PT ABLE TO PERFORM MOST ADLS INDEPENDENTLY, SO HELPS HIM WHEN NEEDED. STARTED LANTUS INSULIN TODAY IN AN ATTEMPT TO BETTER CONTROL HIS BG. NO C/O PAIN T/O THE SHIFT.
--- NOTE | 2019-01-01 16:59 | NUR ---
PT REQUESTED PAIN MEDICATION- FENTANYL AVAILABLE IN PT EMAR. PT SPECIFICALLY STATED HE DOES NOT WANT IV PAIN MEDICATION AND ASKED FOR A PILL HE CAN TAKE. SPOKE TO DR IVERSON IN PERSON TO REQUEST SOME FORM OF PAIN MANAGEMENT THAT WAS NOT IV. SHE WILL REVIEW PT CHART. NO NEW ORDER AT THIS TIME.
--- NOTE | 2019-01-02 04:23 | NUR ---
SHIFT SUMMARY NO ACUTE CHANGES THIS SHIFT. PT OUTSIDE WITH FAMILY FOR START OF SHIFT. FOLLOWING, PT REQUESTED TO BE LEFT ALONE SO HE CAN SLEEP. SLEPT THROUGH MUCH OF THE NIGHT. ABD DISTENDED, PT DENIED ABD PAIN BUT REPORTED FEELING "BLOATED". VITAL SIGNS STABLE. PLAN FOR SURGERY FRIDAY. WILL CONTINUE TO MONITOR.
[2019-01-02 05:38] LABS: Hemoglobin 11.5 g/dL (13.5-17.5); Mean Corpuscular HGB Conc 32.9 g/dL (31.5-36.5); Mean Corpuscular Volume 85 fL (80-100); Platelet Count 194 K/mm3 (150-400); RDW Coefficient Variation 12.8 % (11.7-14.2); RDW Standard Deviation 39.8 fL (35.1-46.3); White Blood Cell Count 10.82 K/mm3 (4.00-11.30)
[2019-01-02 06:34] LABS: Alanine Aminotransfer (ALT/SGP 135 U/L (12-78); Albumin, Blood 2.5 g/dL (3.4-5.0); Albumin/Globulin Ratio 0.6 (0.8-1.8); Alk Phos 239 U/L (50-136); Anion Gap 8 mmol/L (6-16); Aspartate Aminotrans (AST/SGOT 120 U/L (12-37); Bilirubin, Direct 0.2 mg/dL (0.0-0.3); Bilirubin, Indirect 0.6 mg/dL (0.1-0.7); Bilirubin, Total 0.8 mg/dL (0.1-1.0); Blood Urea Nitrogen 18 mg/dL (8-24); Bun/Creatinine Ratio 13.1 (12.0-20.0); CO2, Blood 24 mmol/L (21-32); Calcium, Blood 8.6 mg/dL (8.5-10.1); Chloride, Blood 108 mmol/L (98-108); Creatinine, Blood 1.37 mg/dL (0.60-1.20); Globulin, Blood 4.3 g/dL (2.2-4.0); Glomerular Filtration Rate 55 (60-); Glucose, Blood 291 mg/dL (70-99); Phosphorus, Blood 3.5 mg/dL (2.5-4.9); Potassium, Blood 3.8 mmol/L (3.5-5.5); Sodium, Blood 140 mmol/L (136-145); Total Protein, Blood 6.8 g/dL (6.4-8.2)
--- NOTE | 2019-01-02 16:57 | NUR ---
SHIFT SUMMARY NO ACUTE CHANGES. PATIENT STATES ABDOMEN IS PAINFUL WHEN TOUCHED BUT DECLINES PAIN MEDICATION. PATIENT DENIES NAUSEA AND SHORTNESS OF BREATH. PATIENT TO HAVE LAP MARCELINO TOMORROW BUT TIME IS NOT YET DETERMINED. FAMILY AT BEDSIDE. CALL LIGHT IN EACH, WILL CONTINUE TO MONITOR.
--- NOTE | 2019-01-03 04:27 | NUR ---
SHIFT SUMMARY NO ACUTE CHANGES THIS EVENING. ABD CONTINUES TO BE DISTENDED AND PT DESCRIBES IT "UNCOMFORTABLE" AND "BLOATED". MEDICATED X 1 W/ 1 TAB NORCO. PT SLEPT WELL THROUGH MOST OF THE NIGHT. PT MOSTLY PLEASANT BUT CAN BECOME EASILY FRUSTRATED. PT UPSET THIS EVENING DUE TO THERE NOT BEING A SCHEDULED TIME FOR SURGERY TODAY. HOWEVER, PT IS EAGER TO HAVE SURGERY DONE AND CONTINUE RECOVERY. PT HAS BEEN NPO SINCE MIDNIGHT. SURGICAL PACKET PLACED IN FRONT OF PATIENTS CHART. SIGNIFICANT OTHER AT BEDSIDE THROUGHOUT THE NIGHT. PT OUTSIDE WITH FAMILY X 1 AND HAD A SHOWER THIS EVENING. VITAL SIGNS STABLE. WILL CONTINUE TO MONITOR AND REPORT TO DAY RN.
--- NOTE | 2019-01-03 10:47 | NUR ---
PATIENT TRANSFER PATIENT TRANSFERED TO OR VIA STRETCHER. SURGICAL CHECKLIST COMPLETED. REPORT GIVEN TO SURGICAL FLOOR NURSE RECIEVING PATIENT AFTER SURGERY.
--- NOTE | 2019-01-03 16:14 | NUR ---
SHIFT SUMMARY PT A&OX4, VSS, S/P LAP MARCELINO, 4 GAUZE SITES, CDI. DENIES PAIN AT THIS TIME. DENIES N&V. DOLORES CLEAR LIQUID DIET. AMB W/FWW IN HALLWAY, AND OUTSIDE W/DAUGHTER. IVF @ 100 MLS/HR. PLAN IS FOR MRI TOMORROW AT 0830, PT TO BE NPO AT MIDNIGHT. WCTM & TX PER EMAR UNTIL REPORT GIVEN TO ONCOMING ELIEZER STEELE.
[2019-01-04 04:33] LABS: BASOPHILS ABSOLUTE AUTO 0.01 K/mm3 (0.00-0.23); BASOPHILS PERCENT AUTO 0 % (0-2); EOSINOPHILS PERCENT AUTO 0 % (0-6); Hematocrit 31.9 % (37.0-53.0); Hemoglobin 10.6 g/dL (13.5-17.5); IMMATURE GRAN ABSOLUTE AUTO 0.08 K/mm3 (0.00-0.10); IMMATURE GRAN PERCENT AUTO 1 % (0-1); LYMPHOCYTES ABSOLUTE AUTO 1.22 K/mm3 (0.84-5.20); LYMPHOCYTES PERCENT AUTO 11 % (21-46); MONOCYTES ABSOLUTE AUTO 0.95 K/mm3 (0.16-1.47); MONOCYTES PERCENT AUTO 8 % (4-13); Mean Corpuscular HGB 28.2 pg (26.0-34.0); Mean Corpuscular HGB Conc 33.2 g/dL (31.5-36.5); Mean Corpuscular Volume 85 fL (80-100); NEUTROPHILS ABSOLUTE AUTO 9.18 K/mm3 (1.96-9.15); NEUTROPHILS PERCENT AUTO 80 % (41-73); Platelet Count 179 K/mm3 (150-400); RDW Coefficient Variation 12.7 % (11.7-14.2); RDW Standard Deviation 39.3 fL (35.1-46.3); Red Blood Cell Count 3.76 M/mm3 (4.30-5.90); White Blood Cell Count 11.44 K/mm3 (4.00-11.30)
[2019-01-04 04:51] LABS: Albumin, Blood 2.2 g/dL (3.4-5.0); Albumin/Globulin Ratio 0.6 (0.8-1.8); Bilirubin, Total 0.6 mg/dL (0.1-1.0); Bun/Creatinine Ratio 13.9 (12.0-20.0); Calcium, Blood 8.6 mg/dL (8.5-10.1); Creatinine, Blood 1.37 mg/dL (0.60-1.20); Globulin, Blood 3.8 g/dL (2.2-4.0); Potassium, Blood 4.3 mmol/L (3.5-5.5)
--- NOTE | 2019-01-04 08:05 | NUR ---
SHIFT SUMMARY: PT POD #1 FOR LAP MARCELINO. A&O X4. VSS. DENIES PAIN AND N/V. EXCELLENT PO INTAKE. VOIDING SMALL AMTS EACH TIME. FLUIDS INFUSING. BG >300. PT EDUCATED ON DIABETES MANAGEMENT. BM X2. DENIES PASSING GAS. MOD DISTENDED. 4 SS WITH GAUZE CDI. AMBULATING W/FWW. SIGNIFICANT OTHER AT BEDSIDE. PT REPORTS HE IS EAGER TO GO HOME TODAY.
[2019-01-04] MEDS ORDERED: AMLO10 PO (10:15)
[2019-01-04] MEDS ORDERED: Humalog Mi100 UNIT/4 SC (10:17)
--- NOTE | 2019-01-04 10:28 | NUR ---
DISCHARGE PT VERY EAGER TO DC HOME SINCE MRI COMPLETED. BOTH DR LEES AND DR POWELL AGREE ON D/C. UNDERSTANDS INSTRUCTIONS.
== END 2019-01-04 10:28 | disposition home or self-care (01) | DRG 418 ==
LOC: ER 22:06 → SURS 12-29 05:01 → MEDS 12-29 05:01 → SURS 01-03 10:12
PROVIDERS: Internal Medicine; Physician Assistant; Surgery; ADMIT Hospitalist
PROC: BF03YZZ Plain Radiography of Gallbladder and Bile Ducts using Other Contrast (ICD-10-PCS; 2019-01-03)
PROC: 0FT44ZZ Resection of Gallbladder, Percutaneous Endoscopic Approach (ICD-10-PCS; principal; 2019-01-03 09:15)
DX: K85.10 Biliary acute pancreatitis without necrosis or infection (principal); K81.0 Acute cholecystitis; N17.9 Acute kidney failure, unspecified; Z66 Do not resuscitate; K70.30 Alcoholic cirrhosis of liver without ascites; F32.9 Major depressive disorder, single episode, unspecified; N18.3 Chronic kidney disease, stage 3 (moderate); I12.9 Hypertensive chronic kidney disease with stage 1 through stage 4 chronic kidney disease, or unspecified chronic kidney disease; E11.22 Type 2 diabetes mellitus with diabetic chronic kidney disease; F17.210 Nicotine dependence, cigarettes, uncomplicated; D63.1 Anemia in chronic kidney disease; E66.9 Obesity, unspecified; Z86.73 Personal history of transient ischemic attack (TIA), and cerebral infarction without residual deficits; Z88.1 Allergy status to other antibiotic agents; Z79.84 Long term (current) use of oral hypoglycemic drugs; Z79.02 Long term (current) use of antithrombotics/antiplatelets; Z79.82 Long term (current) use of aspirin; Z79.4 Long term (current) use of insulin; Z79.899 Other long term (current) drug therapy
CPT/HCPCS: 36415; 74176; 74181; 74300; 76705; 80053; 80069; 81001; 82248; 82947; 83036; 83690; 84100; 84478; 85025; 85027; 87086; 87507; 88304; 88307; 88313; 96374; 96375; 97116; 97161; 97165; 97535; 99285-25; C1729; J0690; J1100; J1170; J1644; J2405; J2543; J2704; J2710; J3010; J7030; J7060; J7120

== ENCOUNTER 2019-02-04 11:41 | Inpatient (IN) | payer MEDICARE ==
[~2019-02-04] VITALS: Ht 188 cm; Wt 105.8 kg
[~2019-02-04 11:41] MED LIST changes: +Humalog Mi100 UNIT/4 SC; +TOUJEO SOL300 UNIT/1 SC
[2019-02-04 12:41] LABS: BASOPHILS ABSOLUTE AUTO 0.05 K/mm3 (0.00-0.23); BASOPHILS PERCENT AUTO 0 % (0-2); EOSINOPHILS ABSOLUTE AUTO 0.08 K/mm3 (0.00-0.68); EOSINOPHILS PERCENT AUTO 1 % (0-6); Hematocrit 44.9 % (37.0-53.0); Hemoglobin 14.6 g/dL (13.5-17.5); IMMATURE GRAN ABSOLUTE AUTO 0.09 K/mm3 (0.00-0.10); IMMATURE GRAN PERCENT AUTO 1 % (0-1); LYMPHOCYTES ABSOLUTE AUTO 2.14 K/mm3 (0.84-5.20); LYMPHOCYTES PERCENT AUTO 13 % (21-46); MONOCYTES PERCENT AUTO 6 % (4-13); Mean Corpuscular HGB 27.7 pg (26.0-34.0); Mean Corpuscular HGB Conc 32.5 g/dL (31.5-36.5); Mean Corpuscular Volume 85 fL (80-100); Mean Platelet Volume 10.4 fL (9.1-12.4); NEUTROPHILS ABSOLUTE AUTO 13.47 K/mm3 (1.96-9.15); NEUTROPHILS PERCENT AUTO 80 % (41-73); Platelet Count 157 K/mm3 (150-400); RDW Coefficient Variation 13.5 % (11.7-14.2); RDW Standard Deviation 41.9 fL (35.1-46.3); Red Blood Cell Count 5.28 M/mm3 (4.30-5.90); White Blood Cell Count 16.83 K/mm3 (4.00-11.30)
[2019-02-04 13:04] LABS: Alanine Aminotransfer (ALT/SGP 250 U/L (12-78); Albumin, Blood 3.6 g/dL (3.4-5.0); Albumin/Globulin Ratio 0.9 (0.8-1.8); Alk Phos 262 U/L (50-136); Anion Gap 12 mmol/L (6-16); Aspartate Aminotrans (AST/SGOT 534 U/L (12-37); Bilirubin, Total 2.2 mg/dL (0.1-1.0); Blood Urea Nitrogen 15 mg/dL (8-24); Bun/Creatinine Ratio 10.2 (12.0-20.0); CO2, Blood 20 mmol/L (21-32); Calcium, Blood 9.2 mg/dL (8.5-10.1); Chloride, Blood 107 mmol/L (98-108); Creatinine, Blood 1.47 mg/dL (0.60-1.20); Globulin, Blood 3.9 g/dL (2.2-4.0); Glomerular Filtration Rate 50 (60-); Glucose, Blood 460 mg/dL (70-99); Potassium, Blood 3.5 mmol/L (3.5-5.5); Sodium, Blood 139 mmol/L (136-145); Total Protein, Blood 7.5 g/dL (6.4-8.2)
[2019-02-04 14:54] LABS: Source, Urine Clean Catch
[2019-02-04 14:57] LABS: Bilirubin, Urine Neg (Neg); Blood, Urine 2+ (Neg); Glucose Qualitative, Urine 4+ (Neg); Ketones, Urine 1+ (Neg); Leukocyte Esterase, Urine 1+ (Neg); Nitrite, Urine Neg (Neg); Protein, Urine 4+ (Neg); Specific Gravity, Urine 1.015 (1.003-1.022); Urobilinogen, Urine NORM (Normal)
[2019-02-04 15:06] LABS: Appearance, Urine Clear (Clear); Color, Urine Yellow (P-Yellow)
[2019-02-04 15:09] LABS: Hyaline Casts 0-2 /lpf (0-2)
[2019-02-04 15:10] LABS: Bacteria Few /hpf; Squamous Epithelial Cells Few /hpf (Few)
[2019-02-04] MEDS ORDERED: NOVOLOG FL100 UNIT/1 SC (18:11)
--- NOTE | 2019-02-04 22:07 | NUR ---
BLOOD GLUCOSE 487, VIKKI NOTIFIED. COVER WITH SS SCALE INSULIN NOW PER ORDERS. PT BG TO BE RECHECKED AT MIDNIGHT.
--- NOTE | 2019-02-05 00:54 | NUR ---
BLOOD SUGAR BLOOD SUGAR 450 EVEN AFTER RECEIVING 10 UNITS OF HUMALOG SHORTLY AFTER 10. PT IS CURRENTLY NPO. DR. DILLON CALLED AND NOTIFIED. 25 UNITS OF LANTUS ORDERED, HE ALSO SAID TO CONTINUE MIDNIGHT SS DOSE OF HUMALOG 10 UNITS.
--- NOTE | 2019-02-05 00:56 | NUR ---
PROLONGED QT PT HAS PROLONGED QT ON EKG FROM ER. PT HAD SIMILAR EKG RESULTS FROM AUGUST 2018. PT HAS ZOFRAN ORDERED. DR. DILLON NOTIFIED OF PROLONGED QT. HE WANTS TO CONTINUE ZOFRAN. 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
[2019-02-05 05:27] LABS: BASOPHILS ABSOLUTE AUTO 0.02 K/mm3 (0.00-0.23); BASOPHILS PERCENT AUTO 0 % (0-2); EOSINOPHILS PERCENT AUTO 0 % (0-6); Hematocrit 44.5 % (37.0-53.0); Hemoglobin 14.5 g/dL (13.5-17.5); IMMATURE GRAN ABSOLUTE AUTO 0.04 K/mm3 (0.00-0.10); IMMATURE GRAN PERCENT AUTO 0 % (0-1); LYMPHOCYTES ABSOLUTE AUTO 0.98 K/mm3 (0.84-5.20); LYMPHOCYTES PERCENT AUTO 8 % (21-46); MONOCYTES ABSOLUTE AUTO 0.92 K/mm3 (0.16-1.47); MONOCYTES PERCENT AUTO 8 % (4-13); Mean Corpuscular HGB Conc 32.6 g/dL (31.5-36.5); Mean Corpuscular Volume 86 fL (80-100); Mean Platelet Volume 10.7 fL (9.1-12.4); NEUTROPHILS PERCENT AUTO 83 % (41-73); Platelet Count 160 K/mm3 (150-400); RDW Coefficient Variation 13.9 % (11.7-14.2); RDW Standard Deviation 43.8 fL (35.1-46.3); Red Blood Cell Count 5.18 M/mm3 (4.30-5.90); White Blood Cell Count 11.86 K/mm3 (4.00-11.30)
[2019-02-05 06:04] LABS: Albumin, Blood 2.8 g/dL (3.4-5.0); Albumin/Globulin Ratio 0.8 (0.8-1.8); Bun/Creatinine Ratio 9.1 (12.0-20.0); Creatinine, Blood 2.63 mg/dL (0.60-1.20); Globulin, Blood 3.7 g/dL (2.2-4.0); Total Protein, Blood 6.5 g/dL (6.4-8.2)
[2019-02-05 06:22] LABS: Potassium, Blood 5.5 mmol/L (3.5-5.5)
--- NOTE | 2019-02-05 06:28 | NUR ---
SHIFT SUMMARY PT ER ADMIT THIS SHIFT FOR ACUTE PANCREATITIS. PAIN WITH PALPATION TO LEFT UPPER QUADRANT. PT PAIN HAS BEEN WELL MANAGED WITH DILAUDID ABOUT Q2HR. OCCASIONAL NAUSEA WITH MOVEMENT, OK AT REST. PT EFFECT IS FLAT, AND DOES NOT CONVERSE WITH STAFF. NPO PER ORDERS. PT TO POSSIBLY HAVE MRCP TODAY AND TO BE SEEN BY GENERAL SURGERY DR. MICHELLE. VITALS HAVE BEEN STABLE. AT BEDSIDE T/O THE NIGHT AND ASSISTS WITH ADLS. NO ACUTE CHANGES TO REPORT. WILL CONTINUE TO MONITOR AND REPORT TO ONCOMING RN.
[2019-02-05 11:07] LABS: International Normalized Ratio 1.26; Prothrombin Time Results 13.1 Sec (9.7-11.5)
--- NOTE | 2019-02-05 16:50 | NUR ---
NOTIFIED DR. LUNDBERG PT'S SPOUSE EXSPRESSING CONCERN OF POSSIBLE TIA. PT'S SPOUSE REPORTS PT HAD A TIA IN JUL. OF THIS YEAR. PT HAS DECREASED LOC AND IS LIMITED IN ABILITY TO FOLLOW DIRECTIONS. PT'S SPOUSE REPORTS PT DROPPED CUP MULTIPLE TIMES. PT ABLE TO SQUEEZE BOTH MY HANDS WITH EQUAL STRENGTH. PT HAS BEEN DROWSY T/O THE DAY. PT RECIEVING IV DILAUDID PER EMAR. DR. LUNDBERG REPORTS SHE WILL BE UP TO EXAM PT. NO NEW ORDERS AT THIS TIME.
--- NOTE | 2019-02-05 19:50 | NUR ---
SHIFT SUMMARY- PT AXO TO SELF AND FAMILY. DECREASED LOC. PT LIMITED IN ABILITY TO FOLLOW DIRECTIONS. SEE PREVIOUS NOTE. DR. LUNDBERG CAME AND ASSESSED PT. NO NEW ORDERS AT THIS TIME. PT C/O LUQ/LLQ ABD PAIN. MEDS GIVEN PER EMAR. DENIES N/V. DENIES SOB. RESP E/U ON RA. PT SLEEPING MOST OF THIS SHIFT. AT BEDSIDE. NO OTHER SIGNIFICANT CHANGES THIS SHIFT.
[2019-02-06 05:14] LABS: BASOPHILS ABSOLUTE AUTO 0.02 K/mm3 (0.00-0.23); BASOPHILS PERCENT AUTO 0 % (0-2); Hemoglobin 13.6 g/dL (13.5-17.5); LYMPHOCYTES ABSOLUTE AUTO 1.04 K/mm3 (0.84-5.20); LYMPHOCYTES PERCENT AUTO 7 % (21-46); MONOCYTES ABSOLUTE AUTO 1.24 K/mm3 (0.16-1.47); MONOCYTES PERCENT AUTO 8 % (4-13); Mean Corpuscular HGB 27.8 pg (26.0-34.0); Mean Corpuscular HGB Conc 32.4 g/dL (31.5-36.5); Mean Corpuscular Volume 86 fL (80-100); Mean Platelet Volume 11.8 fL (9.1-12.4); Platelet Count 129 K/mm3 (150-400); RDW Coefficient Variation 14.5 % (11.7-14.2); RDW Standard Deviation 45.1 fL (35.1-46.3); Red Blood Cell Count 4.89 M/mm3 (4.30-5.90); White Blood Cell Count 15.37 K/mm3 (4.00-11.30)
[2019-02-06 05:22] LABS: EOSINOPHILS PERCENT AUTO 0 % (0-6); IMMATURE GRAN PERCENT AUTO 1 % (0-1); NEUTROPHILS ABSOLUTE AUTO 12.97 K/mm3 (1.96-9.15); NEUTROPHILS PERCENT AUTO 84 % (41-73)
[2019-02-06 06:00] LABS: Albumin, Blood 2.4 g/dL (3.4-5.0); Albumin/Globulin Ratio 0.7 (0.8-1.8); Bilirubin, Total 1.8 mg/dL (0.1-1.0); Bun/Creatinine Ratio 9.2 (12.0-20.0); Calcium, Blood 7.6 mg/dL (8.5-10.1); Creatinine, Blood 4.33 mg/dL (0.60-1.20); Globulin, Blood 3.5 g/dL (2.2-4.0); Potassium, Blood 4.8 mmol/L (3.5-5.5); Total Protein, Blood 5.9 g/dL (6.4-8.2)
--- NOTE | 2019-02-06 07:36 | NUR ---
PHYSICIAN CORRESPONDENCE EXPRESSED TO PHYSICIAN THAT PATIENT APPEARED LETHARGIC WITH ALTERED MENTATION, AND DIAPHORETIC. STATED TO PHYSICIAN CHECKED BLOOD SUGAR WHICH WAS 202. PUPILS REACTIVE. EXPALINED THAT PATIENT HAD INCONTINENT EPISODE. AND HAD CONTINUOUS LR @ 200 ML/HR. PHYSICIAN STATED TO BLADDER SCAN AND STRAIGHT CATH >300 ML.
--- NOTE | 2019-02-06 07:44 | NUR ---
SHIFT SUMMARY ALERT TO SELF AND . SLOW DECLINE IN MENTATION FROM BEGINNING OF SHIFT TO END. DIFFICULTY FOLLOWING INSTRUCTIONS. CONTINUES TO C/O PAIN/DISCOMFORT TO ABDOMEN THAT IS FIRM AND TENDER WITH HYPOACTIVE TONES; MEDICATED PER EMAR/ORDERS/JUDGEMENT. NO N/V; HOWEVER STATES DID HAVE DRY HEAVING THIS AM AROUND 0350. HR ELEVATED; PHYSICIAN CALLED (SEE PREVIOUS WILMAN NOTE). APPEARED TO BE LETHARGIC, BUT EASILY AROUSED (AGRIVATED WHEN WOKEN). AT BEDSIDE, ATTENTIVE. HAD AN INCONTINENT EPISODE THIS AM. BED REMAINED IN LOWEST POSITION; ALARM SET. CALL LIGHT WITHIN REACH. CONTINUED TO MONITOR THROUGHOUT SHIFT. REPORT GIVEN TO ONCOMING RN.
[2019-02-06 13:25] LABS: Albumin, Blood 2.2 g/dL (3.4-5.0); Anion Gap 11 mmol/L (6-16); Blood Urea Nitrogen 45 mg/dL (8-24); Bun/Creatinine Ratio 9.1 (12.0-20.0); CO2, Blood 20 mmol/L (21-32); CPK Creatine Kinase 114 U/L (39-308); Calcium, Blood 7.1 mg/dL (8.5-10.1); Chloride, Blood 108 mmol/L (98-108); Creatinine, Blood 4.96 mg/dL (0.60-1.20); Glomerular Filtration Rate 12 (60-); Glucose, Blood 222 mg/dL (70-99); Potassium, Blood 4.8 mmol/L (3.5-5.5); Sodium, Blood 139 mmol/L (136-145)
[2019-02-06 14:50] LABS: Bilirubin, Urine Neg (Neg); Blood, Urine 3+ (Neg); Glucose Qualitative, Urine 4+ (Neg); Ketones, Urine Neg (Neg); Leukocyte Esterase, Urine Neg (Neg); Nitrite, Urine Neg (Neg); Protein, Urine 4+ (Neg); Urobilinogen, Urine NORM (Normal)
[2019-02-06 14:56] LABS: Appearance, Urine Clear (Clear); Color, Urine Yellow (P-Yellow)
[2019-02-06 14:57] LABS: Granular Casts 0-2 /lpf (0)
[2019-02-06 14:59] LABS: Bacteria Mod /hpf; Squamous Epithelial Cells Few /hpf (Few); Yeast/Fungi Urine Few /hpf
--- NOTE | 2019-02-06 18:55 | NUR ---
SHIFT SUMMARY. PT LETHARGIC THROUGHOUT SHIFT, AT MOST TIMES UNABLE TO ANSWER QUESTIONS APPROPRIATLY. ONLY TWO DOSE OF DILAUDID GIVEN THIS SHIFT GIVEN WHEN PT WAS MORE ALERT. NO SOB, N/V. DR. MELTON IN TO SEE PT THIS AFTERNOON. RENAL US COMPLETED. PT WITH DYSPHAGIA AT END OF SHIFT, OBSERVED PT COUGH AFTER SMALL SIP OF WATER. DR. LUNDBERG NOTIFIED RECIEVED ORDERS FOR NPO AND ST EVAL. SIGNIFICANT OTHER AT BEDSIDE MOST OF SHIFT, SHE REPORTS COMMUNICATING WITH PT'S CHILDREN ON PT'S STATUS, SHE SHOWS MUCH CONCERN FOR PT. SHE REPORTS THAT PT HAS REQUESTED DNR IN THE PAST ALTHOUGH IN CURRENTLY DNR. PALLIATIVE CARE MADE AWARE.
--- NOTE | 2019-02-07 03:39 | NUR ---
NOTIFIED DR DAVIS OF RESTLESSNESS ANXIETY. SHE ORDERED IV HALDOL 4MG OT. STILL RESTLESS VS ELEVATED NOTIFIED DR DING HE ORDERED 0.5MG IV ATIVAN. HR 134 PER OPHTHALMIC MEDICAL TECHNICIAN SINUS TACH ADMINISTERED IV METOPROLOL PER EMAR. BLADDER SCAN SHOWED 115. STILL RESTLESS BP 180/80 HR 122 RR [address] MEDICAL TECHNICIAN DR DING ORDERED IV LABATELOL, HR CAME DOWN TO 110.
[2019-02-07 05:24] LABS: BASOPHILS ABSOLUTE AUTO 0.01 K/mm3 (0.00-0.23); BASOPHILS PERCENT AUTO 0 % (0-2); Hematocrit 38.1 % (37.0-53.0); Hemoglobin 12.2 g/dL (13.5-17.5); LYMPHOCYTES ABSOLUTE AUTO 1.05 K/mm3 (0.84-5.20); LYMPHOCYTES PERCENT AUTO 8 % (21-46); MONOCYTES ABSOLUTE AUTO 1.12 K/mm3 (0.16-1.47); MONOCYTES PERCENT AUTO 9 % (4-13); Mean Corpuscular HGB 27.4 pg (26.0-34.0); Mean Corpuscular Volume 85 fL (80-100); Mean Platelet Volume 11.2 fL (9.1-12.4); Platelet Count 117 K/mm3 (150-400); RDW Coefficient Variation 14.5 % (11.7-14.2); RDW Standard Deviation 45.2 fL (35.1-46.3); Red Blood Cell Count 4.46 M/mm3 (4.30-5.90); White Blood Cell Count 13.02 K/mm3 (4.00-11.30)
--- NOTE | 2019-02-07 05:31 | NUR ---
AFTER LABETALOL RR 36 HR PER TELE 115 BP 170/70. MENTATION STILL DISORIENTED CONFUSED RESTLESS. NOTIFIED DR DING AND SAID TO MOVE TO PCU.
[2019-02-07 05:33] LABS: EOSINOPHILS PERCENT AUTO 0 % (0-6); IMMATURE GRAN ABSOLUTE AUTO 0.08 K/mm3 (0.00-0.10); IMMATURE GRAN PERCENT AUTO 1 % (0-1); NEUTROPHILS ABSOLUTE AUTO 10.76 K/mm3 (1.96-9.15); NEUTROPHILS PERCENT AUTO 83 % (41-73)
[2019-02-07 05:46] LABS: Albumin, Blood 2.4 g/dL (3.4-5.0); Albumin/Globulin Ratio 0.7 (0.8-1.8); Bilirubin, Direct 0.3 mg/dL (0.0-0.3); Bilirubin, Indirect 1.6 mg/dL (0.1-0.7); Bilirubin, Total 1.9 mg/dL (0.1-1.0); Bun/Creatinine Ratio 10.2 (12.0-20.0); Calcium, Blood 7.2 mg/dL (8.5-10.1); Creatinine, Blood 4.8 mg/dL (0.60-1.20); Globulin, Blood 3.5 g/dL (2.2-4.0); Phosphorus, Blood 3.4 mg/dL (2.5-4.9); Potassium, Blood 3.6 mmol/L (3.5-5.5); Total Protein, Blood 5.9 g/dL (6.4-8.2)
--- NOTE | 2019-02-07 06:27 | NUR ---
REPORT GIVEN TO LEXIS STEELE IN PCU.
--- NOTE | 2019-02-07 06:30 | NUR ---
RECEIVED HAND OFF FROM 3RD FLOOR RN USING SBAR. TRANSPORTED TO PCU 3 VIA BED. TRANSFERED TO BED WITH FULL STAFF ASSISTANCE, TOLERATED WELL. ANSWERS QUESTIONS WITH SHORT YES, OR NO ANSWERS WITH FEW QUALIFYING WORDS. ORIENTED TO ROOM, CALL SYSTEM, OR POC, WILL REITERATE WITH SO. PT IS FIDGETING IN BED AND TURNING FROM SIDE TO SIDE AND PULLING ON COVERS. WHEN ASKED IF HE IS COLD, HE STATES, "YES, I'M COLD." BP ELEVATED, O2 SAT 89% ON ROOM AIR, HR 110'S-120'S, AND ELEVATED RESPIRATIONS. VIEWS SCORE 6 AT THIS TIME. THESE ARE ONGOING VS. LEFT AC 20G PIV IS PATENT INFUSING NS AT 150ML/HR. RESPIRATIONS EVEN, RAPID, AND UNLABORED ON ROOM AIR, BBS CTA. INCONTINENT, WEARS DEPENDS. DENIES PAIN AT THIS TIME. SAFETY MEASURES IN PLACE. WILL GIVE HAND OFF TO ONCOMING SHIFT USING SBAR
[2019-02-07 07:53] LABS: PCO2 Arterial 30.2 mmHg (35-45); PO2 Arterial 57.3 mmHg (80-100); pH Blood Arterial 7.41 (7.35-7.45)
--- NOTE | 2019-02-07 11:47 | NUR ---
NOTE DISCUSSED WITH FAMILY AT BEDSIDE. OPTED TO TRY A SMALL DOSE OF DILAUDID TO SEE IF PT THRASHING, INCREASED RR AND HR WERE RELATED TO PAIN. PT ALMOST IMMEDIATLEY CALMED AND LAYED QUIETLY. FACE RELAXED. HR AND RR DECLINED. SAT 95% ON 2L N/C. NOW THAT PT WAS CALMER WERE ABLE TO SUCCESSFULLY TAKE HIM FOR HEAD CT. DR MELTON REQUESTED A MULLER BE PLACED FOR STRICT I/O D/T RENAL FAILURE. PT AWAKENED AND CONVERSED APPROPRIATELY ABOUT THE MULLER. HE AGREED TO PLACMENT. DIDN'T FOLLOW DIRECTIONS VERY WELL. KEPT REACHING FOR THE SIDE RAILS AND MOVING HIS LEGS. WHEN MULLER COMPLETED. MEDICATED PT WITH DILAUDID 0.5MG X1. CHECKED HIS VS. BP ELEVATED. PRN LABATOLOL GIVEN X1 FOR SBP OUT OF PERAMETERS. AWAITING NUC. MED FOR VQ SCAN D/T ELEVATED DDIMER. CONTINUE POT.
--- NOTE | 2019-02-07 16:45 | NUR ---
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 HE HAS REDONE HIS WILL WELL. PT WON'T MAKE ANY PLANS PAST APRIL WHEN THEY ARE GOING TO [place] TO MEET THE NEW GRAND CHILD. PT DOES OWN A GUN. WE TALKED ABOUT HER DOUBEL CHECKING THE GUN TO MAKE SURE IT'S UNLOADED. PT SON IS SUPPOSED TO BE HERE AT THE END OF THE WEEK. CONTINUE POT.
--- NOTE | 2019-02-07 18:46 | NUR ---
NOTE PT RESTING. RESP EVEN AND UNLABORED. SAT 95% ON 2L. DR HENRIQUEZ HAS SEEN THE PATIENT AND VISITED WITH HIS S/O. VSS. TALKED WITH DR HENRIQUEZ ABOUT PT RESPONCE TO DILAUDID 0.5 MG. HE STATED TO CONTINUE TO GIVE IT EVEN THOUGH IT DOES SEDATE HIM. DILAUDID 0.25MG DOES NOTHING AND THE PT IS THRASHING, CLIMBING AND PULLING. CURRENTLY HE WILL OPEN HIS EYES BRIEFLY. ONE WORD ANSWERS DOES NOT FOLLOW DIRECTIONS. 4 RAILS UP AND BED ALARM ON. MULLER PLACED FOR STRICT I/O PER DR MELTON ORDER. IVF INFUSING PER ORDER. PT NPO. CONTINUE POT.
[2019-02-08 04:25] LABS: Hemoglobin 11.5 g/dL (13.5-17.5); Mean Corpuscular HGB 27.6 pg (26.0-34.0); Mean Corpuscular HGB Conc 31.9 g/dL (31.5-36.5); Mean Corpuscular Volume 86 fL (80-100); Mean Platelet Volume 10.6 fL (9.1-12.4); Platelet Count 109 K/mm3 (150-400); RDW Coefficient Variation 14.6 % (11.7-14.2); RDW Standard Deviation 46.9 fL (35.1-46.3); Red Blood Cell Count 4.17 M/mm3 (4.30-5.90); White Blood Cell Count 11.01 K/mm3 (4.00-11.30)
[2019-02-08 04:44] LABS: Albumin, Blood 2.9 g/dL (3.4-5.0); Anion Gap 10 mmol/L (6-16); Blood Urea Nitrogen 38 mg/dL (8-24); Bun/Creatinine Ratio 13.6 (12.0-20.0); CO2, Blood 20 mmol/L (21-32); Calcium, Blood 7.8 mg/dL (8.5-10.1); Chloride, Blood 116 mmol/L (98-108); Glomerular Filtration Rate 24 (60-); Glucose, Blood 120 mg/dL (70-99); Phosphorus, Blood 3.7 mg/dL (2.5-4.9); Potassium, Blood 3.9 mmol/L (3.5-5.5); Sodium, Blood 146 mmol/L (136-145)
--- NOTE | 2019-02-08 05:08 | NUR ---
SHIFT SUMMARY LYING IN LOW FOWLERS WITH EYES CLOSED. SO AT BEDSIDE, USES CALL LIGHT APPROPRIATELY WITH PT NEEDS. DENIES PAIN AT THIS TIME, HAS BEEN BEING MEDICATED Q2HRS THROUGHOUT SHIFT FOR PAIN. EXCELLENT URINE OUTPUT PER MULLER. SAFETY MEASURES IN PLACE. WILL GIVE HAND OFF TO ONCOMING SHIFT USING SBAR
[2019-02-08 05:19] LABS: BAND PERCENT MAN 7 % (0-8); BASOPHILS PERCENT MAN 0 % (0-2); EOSINOPHILS PERCENT MAN 0 % (0-6); LYMPHOCYTES ABSOLUTE MAN 0.55 K/mm3 (0.84-5.20); LYMPHOCYTES PERCENT MAN 5 % (21-46); MONOCYTES ABSOLUTE MAN 0.99 K/mm3 (0.16-1.47); MONOCYTES PERCENT MAN 9 % (4-13); NEUTROPHILS ABSOLUTE MAN 9.46 K/mm3 (1.96-9.15); SEG NEUTROPHILS PERCENT MAN 79 % (41-73); TOTAL CELLS COUNTED 100
--- NOTE | 2019-02-08 13:40 | NUR ---
Spoke with bedside nurse, Dr Velasco and discussed case. Dr Velasco called Pt's son who is MPOA and discussed NG-Tube placement in order for Pt to receive cardiac medications. Son is agreeable with plan. Pt is sitting in recliner chair upon arrival. Pt does not respond when this RN speaks with her. She appears comfortable with no S/S of distress at this time. Pt's daughter is present during visit. Discussed plan and she is agreeable. Encouraged daughter to express concerns and she reports anxiety and gives verbal ques of not wanting to elaborate. She states having PTSD and anxiety is normal for her. Daughter reports no concerns at this time. Called and spoke with Pt's son Jack and discussed plan. Jack reports no questions regarding NG-Tube and is agreeable. He states understanding the possibilty if no meaningful recovery that goals of care may need to be reconsidered. Jack reports no concerns at this time. Palliative Care will remain available.
--- NOTE | 2019-02-08 17:50 | NUR ---
SHIFT SUMMARY PT MORE ALERT THIS AFTERNOON. S/O IN AND OUT OF ROOM. PT BEEN REPOSITIONED MULT TIMES. PT BLE ELEVATED ON PILLOW. PT BEEN RESTING QUIETLY WHEN NOT DISTURBED. BEEN ASSISTED WITH ADL'S PRN. BED ALARM IN PLACE.
[2019-02-09 04:19] LABS: BASOPHILS ABSOLUTE AUTO 0.03 K/mm3 (0.00-0.23); BASOPHILS PERCENT AUTO 0 % (0-2); Hematocrit 37.2 % (37.0-53.0); LYMPHOCYTES ABSOLUTE AUTO 0.88 K/mm3 (0.84-5.20); LYMPHOCYTES PERCENT AUTO 6 % (21-46); MONOCYTES ABSOLUTE AUTO 1.84 K/mm3 (0.16-1.47); MONOCYTES PERCENT AUTO 12 % (4-13); Mean Corpuscular HGB Conc 32.3 g/dL (31.5-36.5); Mean Corpuscular Volume 87 fL (80-100); Mean Platelet Volume 10.1 fL (9.1-12.4); Platelet Count 139 K/mm3 (150-400); RDW Coefficient Variation 14.7 % (11.7-14.2); RDW Standard Deviation 46.9 fL (35.1-46.3); Red Blood Cell Count 4.28 M/mm3 (4.30-5.90); White Blood Cell Count 15.19 K/mm3 (4.00-11.30)
[2019-02-09 04:22] LABS: EOSINOPHILS ABSOLUTE AUTO 0.02 K/mm3 (0.00-0.68); EOSINOPHILS PERCENT AUTO 0 % (0-6); IMMATURE GRAN ABSOLUTE AUTO 0.16 K/mm3 (0.00-0.10); IMMATURE GRAN PERCENT AUTO 1 % (0-1); NEUTROPHILS ABSOLUTE AUTO 12.26 K/mm3 (1.96-9.15); NEUTROPHILS PERCENT AUTO 81 % (41-73)
[2019-02-09 04:38] LABS: Albumin, Blood 2.5 g/dL (3.4-5.0); Albumin/Globulin Ratio 0.7 (0.8-1.8); Bilirubin, Direct 0.4 mg/dL (0.0-0.3); Bilirubin, Indirect 1.6 mg/dL (0.1-0.7); Bun/Creatinine Ratio 18.4 (12.0-20.0); Calcium, Blood 8.2 mg/dL (8.5-10.1); Creatinine, Blood 1.9 mg/dL (0.60-1.20); Globulin, Blood 3.8 g/dL (2.2-4.0); Potassium, Blood 3.4 mmol/L (3.5-5.5); Total Protein, Blood 6.3 g/dL (6.4-8.2)
[2019-02-09 05:04] LABS: BAND PERCENT MAN 4 % (0-8); BASOPHILS PERCENT MAN 0 % (0-2); EOSINOPHILS PERCENT MAN 0 % (0-6); LYMPHOCYTES PERCENT MAN 2 % (21-46); MONOCYTES ABSOLUTE MAN 0.75 K/mm3 (0.16-1.47); MONOCYTES PERCENT MAN 5 % (4-13); NEUTROPHILS ABSOLUTE MAN 14.12 K/mm3 (1.96-9.15); SEG NEUTROPHILS PERCENT MAN 89 % (41-73); TOTAL CELLS COUNTED 100
--- NOTE | 2019-02-09 07:24 | NUR ---
SHIFT SUMMARY PT A&O TO SELF, S/O, DIRECTIONS. INCREASED VERBAL COMMUNICATION, MOBILITY AND INTERACTION WITH STAFF NOTED OVER SHIFT. 2-2.5L O2 VIA NC; CONT. OX IN PLACE, O2 SATS OVER 90% T/O SHIFT. FINE CRACKLES NOTED IN BILAT LOWER LUNGS THIS AM; PT STS OCC SOB. TELEMETRY IN PLACE, ST PER PUTTER IN; HR AND BP AND EPIGASTRIC PAIN MANAGED PER EMAR. BT X4; ABD DISTENDED; PT DENIED NAUSEA T/O SHIFT. FREQUENT SMALL, LOOSE BM'S/SMEARS DURING SHIFT; ATTENDS CHANGED/BED [place] PRN. RENZO PATENT, STAT-LOCK IN PLACE. BLOOD GLUCOSE MANAGED PER EMAR/ORDERS. PT NPO T/O SHIFT; ORAL SWABS IN ROOM; ORAL CARE X1. REPORT GIVEN TO DAY SHIFT RN.
--- NOTE | 2019-02-09 10:50 | NUR ---
AM NOTE PT MORE AWAKE, ABLE TO USE CALL LIGHT. GIRL FRIEND ENCOURAGED TO GO HOME AND REST FOR AWHILE. PT ABD LARGE, ROUND FIRM. POSITIVE FLUID WAVE NOTED. MID UPPER ABD TENDER TO LIGHT PALPATION. PT NEED FOR DILAUDID HAS DECREASED. WEANED FROM OXYGEN TO RA. SATURATIONS 94%. RESP. SHALLOW. ST WITH HR 114 BPM. BP ELEVATED. WAITING DR MARS TO SEE PT TO OK ORAL INTAKE AND POSSIBLE RESTARTING OF HOME MEDICATIONS FOR HTN. MULELR PATENT. DECENT OUTPT. SEVERAL SMALL ORANGE/YELLOW BOWEL MOVEMENTS THIS AM. ATTENDS ON. CELESTE AREA SKIN INTACT. NO REDNESS NOTED. APPLIED BARRIER CREAM TO BUTTOCKS AND COCCYX TO PREVENT SKIN BREAK DOWN. PT MOVING SELF IN BED. ABLE TO HELP WITH TURNING AND BED MOBILITY. PLAN TO GET OOB WHEN LIBAN RETURNS. CONTINUE POT.
--- NOTE | 2019-02-09 12:10 | NUR ---
TRANSFER TO RM 211 CALLED PT FAMILYLIBAN ABOUT PT TRANSFER TO ROOM 211. LIBAN AGREEABLE TO TRANSFER. CONTINUE POT.
--- NOTE | 2019-02-09 13:39 | NUR ---
PCU TRANSFER PT ARRIVED TO UNIT AT APROX 1300 FROM PCU IN BED. PT A/O. ATTENDS IN PLACE. RENZO LEBRON'Ruy AT APROX 1315-PT ASSISTED TO SHOWER AND ATTENDS CHANGE. DENIES PAIN AT THIS TIME. REQUESTING WATER, EDUCATED PT THAT HE IS NPO UNTIL SPEECH EVAL SWALLOW STUDY.
--- NOTE | 2019-02-09 19:15 | NUR ---
SHIFT SUMMARY PT HAS DONE WELL SINCE ARRIVAL TO UNIT. RENZO LEBRON'Ruy, VOIDING. SBA TO BATHROOM. PT HAS CONTINUED TO DENY PAIN. TOLERATING MECH SOFT DIET. BED ALARM IN PLACE, SIG OTHER AT BEDSIDE.
[2019-02-09] MEDS ORDERED: ZOLP10 PO (22:35)
[2019-02-10 05:42] LABS: Magnesium, Blood 2.2 mg/dL (1.6-2.4)
[2019-02-10 05:44] LABS: Bun/Creatinine Ratio 20.4 (12.0-20.0); Calcium, Blood 8.4 mg/dL (8.5-10.1); Creatinine, Blood 2.06 mg/dL (0.60-1.20); Potassium, Blood 3.6 mmol/L (3.5-5.5)
--- NOTE | 2019-02-10 08:12 | NUR ---
SHIFT SUMMARY: PT HAVING DIFFICULT TIME SLEEPING T/O SHIFT. INCONTINENT OF YELLOW LIQUID STOOL. 1-2 ASSIST TO BATHROOM PRN. PAIN MANAGED WITH 1MG DILAUDID PER EMAR. MEDICATED TWICE. DENIES N/V. PT SLOW TO RESPOND WITH SOME SLURRED SPEECH. PT APPEARS SOB WITH ALL AMBULATION. ABD FIRM THIS MORNING WITH HYPOACTIVE BT. PT REPORTS PASSING. BG >300 T/O NIGHT. COVERED WITH SS AND SCHED LANTUS. PT SITTING IN CHAIR THIS MORNING.
--- NOTE | 2019-02-10 13:57 | NUR ---
1230 patient eatiing lunch, when attempts to bring fork to mouth with right arm arm will suddenly drop approximently 6 inches causing patient to spill food.patients significant other states this is abnormal for patient. will notify hospitalist when rounds made
[2019-02-10 15:15] LABS: Adenovirus F 40/41 Not Detected (NOT DETECT); Astrovirus Not Detected (NOT DETECT); Campylobacter Sp Not Detected (NOT DETECT); Cryptosporidium Not Detected (NOT DETECT); Cyclospora Cayetanensis Not Detected (NOT DETECT); E. Coli O157 Not Detected (NOT DETECT); Entamoeba Histolytica Not Detected (NOT DETECT); Enteroaggregative E. coli-EAEC Not Detected (NOT DETECT); Enteropathogenic E. coli-EPEC Not Detected (NOT DETECT); Enterotoxigenic E. coli-ETEC Not Detected (NOT DETECT); Giardia Lamblia Not Detected (NOT DETECT); Norovirus GI/GII Not Detected (NOT DETECT); Plesiomonas Shigelloides Not Detected (NOT DETECT); Rotavirus A Not Detected (NOT DETECT); Salmonella Sp Not Detected (NOT DETECT); Sapovirus Not Detected (NOT DETECT); Shiga Toxin-prod E. coli-STEC Not Detected (NOT DETECT); Shigella/Enteroin E. coli-EIEC Not Detected (NOT DETECT); Vibrio Cholerae Not Detected (NOT DETECT); Vibrio Sp Not Detected (NOT DETECT); Yersinia Enterocolitica Not Detected (NOT DETECT)
--- NOTE | 2019-02-10 16:24 | NUR ---
contact precautions placed in contact precautions for c. diff positive. discussed precautions with patients significant other
--- NOTE | 2019-02-10 16:31 | NUR ---
provided written c diff instructions to patients significant other
--- NOTE | 2019-02-10 17:16 | NUR ---
SUMMARY SIGNIFICANT OTHER AT BEDSIDE MOST OF SHIFT AND ATTENTIVE TO PATIENT. PATIENT IMPULSIVE AT TIMES TRYING TO SIT OR GET OUT OF BED. MUCOUSY LIQUID BROWN STOOLS. PATIENT HAS DENIED PAIN THROUGHOUT SHIFT.
--- NOTE | 2019-02-10 19:28 | NUR ---
called to room by patients significant other, patient wheezy with increased respiratory rate of 28 after returning to bed from bathroom. rt contacted for updraft
--- NOTE | 2019-02-10 23:57 | NUR ---
POSITIVE C-DIFF RESULTS REPORTED TO HOSPITALIST, IV ABX ORDERED. PT IS BEING NON COMP[LIANT WITH ASPIRATION PRECAUTIONS DESPITE BEING OFFERED NECTER THICK OPTIONS. DE'S SIGNIFICANRT OTHER REPORTS HE IS "TAKING HER DRINKS" WHENEVER SHE IS NOT PAYING ATTENTION. LUNGS SOUNGS ARE MOIST WITH GURGLES, RESP LABORED WITH EXERTION, STATUS REPORTED TO HOSPITALIST, CHEST XRAY ORDERED.
[2019-02-11 04:26] LABS: BASOPHILS ABSOLUTE AUTO 0.04 K/mm3 (0.00-0.23); BASOPHILS PERCENT AUTO 0 % (0-2); EOSINOPHILS ABSOLUTE AUTO 0.02 K/mm3 (0.00-0.68); EOSINOPHILS PERCENT AUTO 0 % (0-6); Hematocrit 35.3 % (37.0-53.0); Hemoglobin 11.4 g/dL (13.5-17.5); IMMATURE GRAN PERCENT AUTO 1 % (0-1); LYMPHOCYTES ABSOLUTE AUTO 1.07 K/mm3 (0.84-5.20); LYMPHOCYTES PERCENT AUTO 5 % (21-46); MONOCYTES ABSOLUTE AUTO 1.85 K/mm3 (0.16-1.47); MONOCYTES PERCENT AUTO 9 % (4-13); Mean Corpuscular HGB 27.9 pg (26.0-34.0); Mean Corpuscular HGB Conc 32.3 g/dL (31.5-36.5); Mean Corpuscular Volume 86 fL (80-100); Mean Platelet Volume 10.4 fL (9.1-12.4); NEUTROPHILS ABSOLUTE AUTO 18.07 K/mm3 (1.96-9.15); NEUTROPHILS PERCENT AUTO 85 % (41-73); Platelet Count 155 K/mm3 (150-400); RDW Standard Deviation 47.6 fL (35.1-46.3); Red Blood Cell Count 4.09 M/mm3 (4.30-5.90); White Blood Cell Count 21.25 K/mm3 (4.00-11.30)
[2019-02-11 04:45] LABS: Bun/Creatinine Ratio 20.9 (12.0-20.0); Calcium, Blood 8.5 mg/dL (8.5-10.1); Creatinine, Blood 2.06 mg/dL (0.60-1.20); Magnesium, Blood 2.2 mg/dL (1.6-2.4); Potassium, Blood 3.5 mmol/L (3.5-5.5)
--- NOTE | 2019-02-11 06:47 | NUR ---
TRANSFER REPORT FROM MAG[facility] STEELE ON SURGICAL FLOOR ON PT being transferred to room 350. He has acute pancreatitis and having diarrhea. tested positive for cdiff and started on iv flagyl. Placing in contact enteric precautions . to room 350 at 0650 am.
--- NOTE | 2019-02-11 06:49 | NUR ---
PT TRANSFERRED TO ROOM 350 AT THIS THIS TIME. REPORT WAS GIVEN TO RN. ALL MEDS, BELONGINGS AND CHART WAS SENT. PT'S SIGNIFICANT OTHER IS AT THE BEDSIDE.
--- NOTE | 2019-02-11 06:55 | NUR ---
SUMMARY PT CONTINUES TO BE NON COMPLIANT WITH CARE. HE IS IMPULSIVE AND ATTEMPTS TO GET OOB WITHOUT CALLING FOR ASSISTANCE, PT'S IS AT THE BEDSIDE AND ASSISTS WITH CARE BUT SHE IS BECOMING EXHAUSTED AND FRUSTRATED. THE PT AND HIS SIGNIFICANT OTHER HAVE BEEN EDUCATED MULTIPLE TIMES ABOUT ASPIRATION PRECAUTIONS. THE PT KEEPS ATTEMPTING TO GRAB FLUIDS AND DRINK THEM WHEN HIS "" IS NOT LOOKING. THE PT WAS GETTING NECTAR THICK LIQUIDS BUT WAS UNABLE TO SWALLOW APPROPRIATLEY, NPO WAS ENC, PT REFUSED, HONEY THICK FLUIDS WERE GIVEN INSTEAD. LUNG SOUNDS ARE , MOIST WITH CRACKLES, SHALLOW AND SEMI LABORED. HOSPITALIST WAS NOTIFIED, CHEST XRAY ORDERED, PT REMAINS ON ROOM AIR. IV FLAGYL STARTED FOR CDIFF.
--- NOTE | 2019-02-11 07:00 | NUR ---
ASSUMED CARE OF PT- PT ARRIVED AT SHIFT CHANGE, RECIEVED REPORT FROM NIGHT RN HUSAM. PT ALERT AND ORIENTED AND FORGETFUL. PT RESP 28 ON ARRIVAL TO MEDICAL FLOOR SBP IN THE 140'S. PT HR TACHY AT 108. CALLED RT REQUESTED A BREATHING Tx D/T PT DIFFICULTY BREATHING AND RAPID RESP.
--- NOTE | 2019-02-11 07:42 | NUR ---
report to Latoya De León on transfer with acute pancreatitis and cdiff positive. Aspiration risk, he is rattly with audible moist resp. Signif other at bedside tearful. 4 recent hospitalizations. Chest x ray taken during night, report pending. NPO per xray results
--- NOTE | 2019-02-11 08:00 | NUR ---
PT HAS C/O PAIN IN THE RUQ OF THE ABDOMEN. MEDICATED WITH IV DILAUDID PT IS NPO PENDING SPEECH EVAL. PT HAS A NOTABLE RIGHT SIDED FACIAL DROOP. HE IS UNABLE TO SMILE ON COMMAND AT THIS TIME. ABDOMEN IS GREATLY DISTENDED. WILL CTM
--- NOTE | 2019-02-11 09:30 | NUR ---
PT RESP RATE INCREASED TO 40, LUNG SOUNDS WET AND CRACKLY. CALLED DR MARS SBP UP TO 181 AND PULSE TO 118-120. VEWS SCORE OF 5 O2 SATS 89-91 ON ROOM AIR. PLACED PT ON 3L O2 VIA NC SATS UP TO THE 94% RANGE. SPOKE TO DR MARS AND RECIEVED ORDER FOR HEAD CT, IV LASIX AND TRANSFER TO PCU FOR CLOSER MONITORING. PER DOCUMENTED I&O PT IS FLUID OVER, POSSIBLE CAUSE OF RESP DISTRESS. RT SHOLA CAME TO SEE THE PT.
--- NOTE | 2019-02-11 10:15 | NUR ---
SPOKE TO CEDRIC MORGAN AND GAVE PRELIMINARY REPORT, WILL COMPLETE REPORT AT BEDSIDE PER REQUEST. PT RECIEVED 40MG IV LASIX PRIOR TO TRANSFER TO PCU 10. CEDRIC MORGAN WILL NOTIFY PT SO. POL FOR PLACED IN FRONT OF THE CHART, DR RUBIO NEEDED. PT SO WAS TEARFUL THIS MORNING,SHE FEARS THE WORST FOR THE PT AT THIS TIME AND WANTS TO KNOW IF DR'S THINK HE'S "NOT GONNA MAKE IT" SO CONVEYED THAT SHE WANTS TO BE ABLE TO CONTACT HIS CHILDREN WHO LIVE OUT OF STATE SO THEY CAN BE HERE IF NEEDED. SHE HAS MISSED SPEAKING WITH THE DOCTOR FOR THE LAST COUPLE OF DAYS AND WOULD LIKE TO SPEAK TO HIM TODAY; HOWEVER THIS WA NOT CONVEYED TO THE DOCTOR IN THE PRESENCE OF MORE ACUTE ISSUES. PT IS VERY IMPULSIVA AND IS A HIGH FALL RISK, PER SPEACH THERAPY PT IS STRICT NPO, INCLUDING ORAL MEDS.
--- NOTE | 2019-02-11 16:55 | NUR ---
NURSING PCU DAYSHIFT SUMMARY: Assumed care of pt at approx 1030. Arrived from med floor via bed accompanied by staff by two. Xferred to unit bed using slider sheet. Tele placed, ST, BP stable, trace edema to LLE. L/S coarse t/o, respirations rapid and moist, weak cough and unable to clear secretions, O2 sat mid to upper 90's on 3L NC. Respiratory status has been unchanged t/o the shift. Abd distended, mildly tender, BT, attends in place, incontinent of urine. PIV x1, s/l w/abx as schedule. Call placed to s/o upon pt's arrival to unit, plan of care discussed along w/labs and imaging results, denied any questions. S/O arrived to unit this evening anxious/tearful and expressing concerns that family is not being kept up to date regarding pt's condition, reminded s/o of telephone conversation, acknowledged discussion and denied additional questions. No significant changes since arrival to unit. Head CT completed, results reviewed. Pt has been impulsive t/o the shift and requires bed alarms at all times along w/1-2 staff assist w/ambulation. Non-compliant w/NPO status and has required redirecting several times during attempts to drink out of the sink while going to the bathroom or washing hands. Seen by PMD this afternoon, new d/o received. Call light in reach of pt and family, cont to monitor until rpt is given to ELIEZER RN.
[2019-02-12 03:47] LABS: BASOPHILS ABSOLUTE AUTO 0.02 K/mm3 (0.00-0.23); BASOPHILS PERCENT AUTO 0 % (0-2); Hematocrit 31.9 % (37.0-53.0); Hemoglobin 10.4 g/dL (13.5-17.5); LYMPHOCYTES ABSOLUTE AUTO 1.27 K/mm3 (0.84-5.20); LYMPHOCYTES PERCENT AUTO 7 % (21-46); MONOCYTES ABSOLUTE AUTO 1.41 K/mm3 (0.16-1.47); MONOCYTES PERCENT AUTO 8 % (4-13); Mean Corpuscular HGB 27.7 pg (26.0-34.0); Mean Corpuscular HGB Conc 32.6 g/dL (31.5-36.5); Mean Corpuscular Volume 85 fL (80-100); Mean Platelet Volume 10.1 fL (9.1-12.4); Platelet Count 136 K/mm3 (150-400); RDW Coefficient Variation 15.1 % (11.7-14.2); RDW Standard Deviation 46.5 fL (35.1-46.3); Red Blood Cell Count 3.75 M/mm3 (4.30-5.90); White Blood Cell Count 18.04 K/mm3 (4.00-11.30)
[2019-02-12 03:48] LABS: EOSINOPHILS ABSOLUTE AUTO 0.06 K/mm3 (0.00-0.68); EOSINOPHILS PERCENT AUTO 0 % (0-6); IMMATURE GRAN ABSOLUTE AUTO 0.15 K/mm3 (0.00-0.10); IMMATURE GRAN PERCENT AUTO 1 % (0-1); NEUTROPHILS ABSOLUTE AUTO 15.13 K/mm3 (1.96-9.15); NEUTROPHILS PERCENT AUTO 84 % (41-73)
[2019-02-12 04:03] LABS: Bun/Creatinine Ratio 19.7 (12.0-20.0); Calcium, Blood 8.4 mg/dL (8.5-10.1); Creatinine, Blood 2.03 mg/dL (0.60-1.20); Magnesium, Blood 2.1 mg/dL (1.6-2.4); Phosphorus, Blood 3.7 mg/dL (2.5-4.9); Potassium, Blood 3.4 mmol/L (3.5-5.5)
--- NOTE | 2019-02-12 07:25 | NUR ---
SHIFT SUMMARY PATIENT CONTINUES TO FREQUENTLY REQUEST WATER. PATIENT EDUCATED EACH TIME ON THE IMPORTANCE OF NOT EATING OR DRINKING AT THIS TIME. PATIENT PROVIDED WITH MOUTH SWABS FREQUENTLY THROUGHOUT THE NIGHT. IV FLUIDS AND ABX RUNNING PER ORDERS. PATIENT'S SIGNIFICANT OTHER SPENT THE NIGHT IN THE ROOM AND HELPED TO REDIRECT PATIENT WHEN NEEDED. PATIENT CONTINUES TO BE ALERT BUT PATIENT DOES APPEAR TO BE CONFUSED AND FREQUENTLY FORGETFUL. REORIENTED AND REDIRECTED APPROPRIATELY. PATIENT DID SET OFF THE BED ALARM OCCATIONALLY WHEN GETTING UP TO USE THE BSC BUT WAS EDUCATED ON THE USE OF THE CALL LIGHT EACH TIME. PATIENT MEDICATED FOR PAIN CHARTED. PATIENT APPEARED TO SLEEP WELL LAST NIGHT. VITAL SIGNS CHARTED. REPORT GIVEN TO ONCOMING RN.
--- NOTE | 2019-02-12 08:00 | NUR ---
PT LAYING IN BED ASKING FOR POPSICLES, WATER. EXPLAINED NUMEROUS TIMES HE CAN'T HAVE ANYTHING YET. HE FOLLOWS COMMANDS, IS IMPULSIVE, COOPERATIVE WITH CARE, LUNGS ARE COURSE RHONCHI, IS VERY WET IN BRONCHIAL AREA, RT IN ROOM AND THINKS HE MAY BENEFIT FROM DEEP SUCTION, BUT USED YANKAR AT THIS TIME WHICH HELPED A BIT. HE IS CURRENLY ON 2 LITERS 02 VIA N/C, RESP EVEN AND UNLABORD, HAS A MODERATE COUGH EFFORT, BUT NOT BRINGING ANYTHING UP, HRR, TELE IN PLACE RUNNING SR PER MONITOR, SEE STRIP, NO EDEMA NOTED, PPP+1, CAP REFILL <3SEC, VS STABLE, AFEBRILE, IV SITE IS CLEAR AND PATENT, INFUSING FLUIDS ORDERED, IV TO LEFT FA, BTX4, ABD FLAT SOFT NONTENDER, VOIDS VIA ATTENDS OR URINAL, HAS ATTENDS IN PLACE, SKIN HAS SOME SCATTERED BRUISING OTHERWISE C/W/D, WEAKER ON LEFT SIDE, ARM AND LEG. SPOUCE IN ROOM WITH HIM, CALL LIGHT IN REACH.
--- NOTE | 2019-02-12 15:55 | NUR ---
PT HAS CALLED NURSE IN SEVERAL TIMES TO ASK FOR SOMETHING TO DRINK, HE WAS EXPLLAINED THAT HE CANNOT DRINK YET, WANTED ME TO GET SPEECH THERAPY BACK IN HERE TO RE EVAL HIM, HE STATES THE ONLY REASON HE COULDN'T SWALLOW FOR HER IS IT WAS TO DRY. HE GOT HIMSELF WATER AT THE SINK IN THE ROOM, HIS IS IN THE ROOM AND DOESN'T FEEL LIKE SHE CAN STOP HIM. WENT OVER RISKS, HE WILL DO IT ANYWAY, HE DOES HAVE A COUGH AFTER. AMBULATING AROUND ROOM. CALL LIGHT IN REACH.
--- NOTE | 2019-02-12 18:01 | NUR ---
pt resting in bed with eyes closed, at bedside, no acute changes this shift. call light in reach.
[2019-02-13 03:52] LABS: BASOPHILS ABSOLUTE AUTO 0.01 K/mm3 (0.00-0.23); BASOPHILS PERCENT AUTO 0 % (0-2); EOSINOPHILS ABSOLUTE AUTO 0.11 K/mm3 (0.00-0.68); EOSINOPHILS PERCENT AUTO 1 % (0-6); Hematocrit 32.2 % (37.0-53.0); Hemoglobin 10.4 g/dL (13.5-17.5); IMMATURE GRAN ABSOLUTE AUTO 0.11 K/mm3 (0.00-0.10); IMMATURE GRAN PERCENT AUTO 1 % (0-1); LYMPHOCYTES ABSOLUTE AUTO 1.11 K/mm3 (0.84-5.20); LYMPHOCYTES PERCENT AUTO 7 % (21-46); MONOCYTES ABSOLUTE AUTO 1.11 K/mm3 (0.16-1.47); MONOCYTES PERCENT AUTO 7 % (4-13); Mean Corpuscular HGB 27.7 pg (26.0-34.0); Mean Corpuscular HGB Conc 32.3 g/dL (31.5-36.5); Mean Corpuscular Volume 86 fL (80-100); Mean Platelet Volume 10.3 fL (9.1-12.4); NEUTROPHILS ABSOLUTE AUTO 14.66 K/mm3 (1.96-9.15); NEUTROPHILS PERCENT AUTO 86 % (41-73); Platelet Count 160 K/mm3 (150-400); RDW Coefficient Variation 15.2 % (11.7-14.2); RDW Standard Deviation 47.9 fL (35.1-46.3); Red Blood Cell Count 3.76 M/mm3 (4.30-5.90); White Blood Cell Count 17.11 K/mm3 (4.00-11.30)
[2019-02-13 04:11] LABS: Creatinine, Blood 1.67 mg/dL (0.60-1.20); Potassium, Blood 3.3 mmol/L (3.5-5.5)
--- NOTE | 2019-02-13 05:42 | NUR ---
SHIFT SUMMARY PT A&O X4. BED ALARM ON FOR FALL PRECAUTIONS, PT IMPULSIVE, GETS UP W/OUT CALLING. UNSTEADY GAIT, 1 PERSON ASSIST W/ FWW TO BSC. L-SIDED WEAKNESS NOTED. PT ASKING FOR DRINK, POPSCICLE, OR JELLO REPETITIVELY T/O SHIFT. PT REMINDED OF NPO STATUS AND NEED TO WAIT FOR DIETARY CLEARANCE. PT FRUSTRATED. PT LUNG SOUNDS COARSE. SPO2 > 92% ON 3L NC TITRATED TO 2L NC THIS SHIFT. MONITOR SHOWS NSR/ST, HR 90-110. PT ESCORTED OUTSIDE IN WHEELCHAIR BY FAMILY THIS SHIFT. PT ASKING TO GET DRESSED, HOPING TO DISCHARGE HOME. WILL CONTINUE TO MONITOR AND PROVIDE CARE UNTIL REPORT OFF TO DAY SHIFT RN.
--- NOTE | 2019-02-13 08:31 | NUR ---
pt resting in bed, his daughters are in room from [facility]. a/ox3, follows commands, lungs are course t/o with exp wheezing in bases, reps even and unlabored, has a wet cough, is currently on 2 liters 02 via n/c, hrr, tele in place running sr per monitor, see strip, edema noted to b/l le, ppp+1, cap refill <3 sec, vs stable, afebrile, iv site is clear and patent, btx4, abd flat soft nontender, voids with out diff, has attends in place for incont, but does get up to bsc, skin has some scattered bruising, otherwise c/w/d, jorge, a bit weaker on left side, tommy, is frequently asking for water and the speech therapist to come in. call light in reach.
--- NOTE | 2019-02-13 13:30 | NUR ---
pt has been cleared to eat puree, he is doing well following speech therapies instructions. daughters in room. call light in reach.
--- NOTE | 2019-02-13 18:26 | NUR ---
iv infiltrated to right arm, pt got up to bsc and pulled out the iv in the left ac, icu nurse is attempting a new one. pt had a long nap this afternoon. denies any complaints, no acute changes this shift, call light in reach.
[2019-02-14 04:15] LABS: BASOPHILS ABSOLUTE AUTO 0.02 K/mm3 (0.00-0.23); BASOPHILS PERCENT AUTO 0 % (0-2); EOSINOPHILS ABSOLUTE AUTO 0.12 K/mm3 (0.00-0.68); EOSINOPHILS PERCENT AUTO 1 % (0-6); Hematocrit 33.2 % (37.0-53.0); Hemoglobin 10.7 g/dL (13.5-17.5); IMMATURE GRAN PERCENT AUTO 1 % (0-1); LYMPHOCYTES ABSOLUTE AUTO 1.68 K/mm3 (0.84-5.20); LYMPHOCYTES PERCENT AUTO 10 % (21-46); MONOCYTES ABSOLUTE AUTO 1.36 K/mm3 (0.16-1.47); MONOCYTES PERCENT AUTO 8 % (4-13); Mean Corpuscular HGB 27.6 pg (26.0-34.0); Mean Corpuscular HGB Conc 32.2 g/dL (31.5-36.5); Mean Corpuscular Volume 86 fL (80-100); Mean Platelet Volume 10.5 fL (9.1-12.4); NEUTROPHILS ABSOLUTE AUTO 13.76 K/mm3 (1.96-9.15); NEUTROPHILS PERCENT AUTO 81 % (41-73); Platelet Count 168 K/mm3 (150-400); RDW Coefficient Variation 15.2 % (11.7-14.2); RDW Standard Deviation 47.8 fL (35.1-46.3); Red Blood Cell Count 3.87 M/mm3 (4.30-5.90); White Blood Cell Count 17.04 K/mm3 (4.00-11.30)
[2019-02-14 04:28] LABS: Albumin, Blood 1.9 g/dL (3.4-5.0); Albumin/Globulin Ratio 0.5 (0.8-1.8); Bilirubin, Total 0.8 mg/dL (0.1-1.0); Bun/Creatinine Ratio 17.6 (12.0-20.0); Calcium, Blood 8.1 mg/dL (8.5-10.1); Creatinine, Blood 1.59 mg/dL (0.60-1.20); Globulin, Blood 3.5 g/dL (2.2-4.0); Potassium, Blood 3.3 mmol/L (3.5-5.5); Total Protein, Blood 5.4 g/dL (6.4-8.2)
--- NOTE | 2019-02-14 06:30 | NUR ---
SHIFT SUMMARY PT MEDICAL NO TELE STATUS. A&O TO SELF AND FAMILY, FOLLOWING MOST INSTRUCTIONS. BED ALARM ON D/T IMPULSIVITY W/ ATTEMPT TO INDEPENDENTLY GET OOB. PT WEAK W/ UNSTEADY GAIT, 1 PERSON ASSIST W/ FWW TO BSC. PT VSS. PUREED DIET W/ NECTAR THICK LIQUIDS & ASPIRATION PRECAUTIONS. PT C/O DIET ORDER RESTRICTIONS D/T DISLIKE FOR TEXTURE. OCCASSIONAL MOIST, NONPRODUCTIVE COUGH AFTER ORAL INTAKE. SMALL AMOUNTS OF OCCASSIONAL THICK MIDDLETON SPUTUM OTHER TIMES. PT LUNG SOUNDS COARSE. SPO2 > 92% ON RA. WILL CONTINUE TO MONITOR AND PROVIDE CARE UNTIL REPORT OFF TO DAY SHIFT RN.
--- NOTE | 2019-02-14 08:50 | NUR ---
AM NOTE. ASSUMED CARE OF PT APROX, PT IS A&Ox4 AND SBA IN THE ROOM WITH BED/CHAIR ALARM. PT HAS BEEN IMPULSIVE AT TIMES PER REPORT. PT'S VS STABLE AT THIS TIME, HRR, L/S MOIST AND COARSE WITH SCATTERED EXP WHEEZES T/O. PT IS ON RA WITH O2 SATS >90%. BT PRESENT AND NORMOACTIVE IN ALL QUADRANTS. ABD IS SOFT AND NONTENDER TO PALP. PT STATES SEVERAL TIMES HE IS FRUSTRATED WITH HIS PUREE DIET AND THICKENED LIQUIDS, THIS RN PROVIDED EDUCATION AND SUPPORT TO THE PT ABOUT HIS CURRENT DIET AND HIS ASPIRATION RISKS. CALL LIGHT IN REACH, WILL CONTINUE TO MONITOR.
--- NOTE | 2019-02-14 11:50 | NUR ---
PT UPDATE... THIS RN ENTERED THE PT'S ROOM TO GIVE MEDS AND SUPERVISE THE PT WHILE HE IS EATING HIS LUNCH DUE TO ASPIRATION PRECAUTIONS. THIS RN NOTED ON THE PT'S BEDSIDE TABLE A GLASS OF ICE TEA WITH LEMON THAT WAS 90% GONE. THE PT IS SUPPOSED TO BE ON NECTAR THICKENED LIQUIDS, PT IS AWARE OF THIS AND CONTINUES TO STATE THAT ONCE HE IS HOME HE WILL "DRINK WHATEVER I DAMN WELL WANT." PT WAS COMPLETLY EDUCATION ON APRIATION PRECAUTIONS, THE REASONS FOR ALTERED DIETS AND HOW TO PREVENT ASPIRATION. PT STATED HIS UNDERSTANDING.
--- NOTE | 2019-02-14 13:21 | NUR ---
PT UPDATE... PER CHARGE NURSE ANAHY: PT'S FAMILY HAD GIVEN PT THIN ICE TEA WHILE THEY HAD THE PT'S DOOR CLOSED. THEY STATED THAT THEY THOUGHT " LONG HE WAS COUGHING IT WAS OKAY TO GIVE HIM THIN LIQUIDS." FAMILY (DAUGHTER AND EX-) STATED THAT HE COUGHED AFTER EVERY DRINK OF THIN LIQUIDS. EDUCATION WAS PROVIDED TO FAMILY ON THE IMPORTANCE OF PREVENTION ASPIRATION, WHAT ASPIRATION PNUMONIA IS AND HOW IT CAN BE DEADLY. FAMILY AND PT EDUCATED ON WHY THE PT IS ASPRIATING AND HOW TO PREVENT IT. FAMILY AND PT VERBALIZED THEIR UNDERSTANDING OF ALL EDUCATION. CURRENTLY THE PT'S L/S INCREASED COARSENES AND MOIST WITH INCREASED EXP WHEEZES T/O. PT CONTINUES TO SOUND GURGLY FROM ACROSS THE ROOM. WILL CONTINUE TO MONITOR
--- NOTE | 2019-02-14 18:07 | NUR ---
Clinical Visit: Pt is alert, oriented, grumpy. He states that he hasn't really been sleeping. He is very anxious because he hasn't had his proper medications that help with that. He is very annoyed over his meals and hates eating. He wants to talk to the doctor about discharging. He is ready to go home. Call placed to Dr. Dsouza. Orders placed for lexapro and ambien.
--- NOTE | 2019-02-14 18:10 | NUR ---
SHIFT SUMMARY. NO ACUTE CHANGES NOTED THIS SHIFT. PT'S VS STABLE T/O SHIFT. PT DENIES ANY PAIN/DISCOMFORT AT THIS TIME. PT HAS SLEPT WELL INBETWEEN MEALS. PT'S FAMILY TOOK THE PT OUTSIDE IN W/C AND WAS GONE APROX 1 HOUR. PT'S L/S STILL MOIST/COARSE W/EXP WHEEZES. PT HAS MADE MULTIPLE COMMENTS T/O THIS SHIFT THAT HE DOES NOT PLAN TO CONTINUE TO FOLLOW THE PUREE DIET AND THICKENED LIQUIDS AT HOME. PT AND FAMILY HAVE BEEN THOROUGHLY EDUCATION ABOUT ASPIRATION PNEUMONIA, SWALLOW PRECAUTIONS, MODIFIED DIETS AND ASPIRATION PREVENTION. BOTH PT AND FAMILY HAVE STATED THEIR UNDERSTANDING OF THIS EDUCATION, HOWEVER PT STILL STATES HE WILL "DO WHAT I WANT WHEN I GET HOME." CALL LIGHT IN REACH, BED ALARM/CHAIR ALARM IS ON WILL CONTINUE TO MONITOR UNTIL REPORT IS GIVEN TO ONCOMING RN.
--- NOTE | 2019-02-14 18:31 | NUR ---
PT UPDATE... PT REQUESTED TO USE THE BSC, THIS RN GOWNED UP AND ATTEMPTED TO HELP PT UP FROM THE CHAIR TO THE BSC, PT GOT UP OUT OF THE CHAIR BEFORE THIS RN WAS READY AND STARTED TO TRANSFER HIMSELF FROM THE CHAIR TO THE BED, PT WAS VERY UNSTEADY ON HIS FEET, WHEN THIS RN REACHED OUT TO STEADY THE PT HE WAS ATTEMPTING TO SIT ON THE BSC WITH HIS PANTS STILL UP. THIS RN TRIED TO HELP THE PT PULL HIS PANTS DOWN AND PT GOT UPSET STATING: "LOOK WHAT YOU MADE ME DO! ITS YOUR FAULT I LOST MY BALANCE!" PT IS VERY IMPULSIVE, PT ALSO GETS VERY UPSET IF THE SITUATION DOES NOT GO HIS WAY. PT IS NOT COMPLIANT WITH DIET, PT IS REMINDED TO EAT AND DRINK SMALL BITES/DRINKS HOWEVER PT GETS UPSET AND AGRESSIVE WHEN HE IS TOLD THIS.
[2019-02-15 04:00] LABS: BASOPHILS ABSOLUTE AUTO 0.02 K/mm3 (0.00-0.23); BASOPHILS PERCENT AUTO 0 % (0-2); EOSINOPHILS ABSOLUTE AUTO 0.08 K/mm3 (0.00-0.68); EOSINOPHILS PERCENT AUTO 1 % (0-6); Hematocrit 33.5 % (37.0-53.0); Hemoglobin 10.7 g/dL (13.5-17.5); IMMATURE GRAN ABSOLUTE AUTO 0.09 K/mm3 (0.00-0.10); IMMATURE GRAN PERCENT AUTO 1 % (0-1); LYMPHOCYTES ABSOLUTE AUTO 1.53 K/mm3 (0.84-5.20); LYMPHOCYTES PERCENT AUTO 11 % (21-46); MONOCYTES ABSOLUTE AUTO 1.23 K/mm3 (0.16-1.47); MONOCYTES PERCENT AUTO 9 % (4-13); Mean Corpuscular HGB 27.6 pg (26.0-34.0); Mean Corpuscular HGB Conc 31.9 g/dL (31.5-36.5); Mean Corpuscular Volume 87 fL (80-100); Mean Platelet Volume 10.7 fL (9.1-12.4); NEUTROPHILS ABSOLUTE AUTO 11.44 K/mm3 (1.96-9.15); NEUTROPHILS PERCENT AUTO 80 % (41-73); Platelet Count 171 K/mm3 (150-400); RDW Standard Deviation 48.1 fL (35.1-46.3); Red Blood Cell Count 3.87 M/mm3 (4.30-5.90); White Blood Cell Count 14.39 K/mm3 (4.00-11.30)
[2019-02-15 04:22] LABS: Albumin, Blood 2.2 g/dL (3.4-5.0); Albumin/Globulin Ratio 0.6 (0.8-1.8); Bilirubin, Total 1.1 mg/dL (0.1-1.0); Bun/Creatinine Ratio 15.8 (12.0-20.0); Calcium, Blood 8.2 mg/dL (8.5-10.1); Creatinine, Blood 1.52 mg/dL (0.60-1.20); Globulin, Blood 3.5 g/dL (2.2-4.0); Potassium, Blood 3.4 mmol/L (3.5-5.5); Total Protein, Blood 5.7 g/dL (6.4-8.2)
--- NOTE | 2019-02-15 07:54 | NUR ---
SHIFT SUMMARY PT A&O X4, IMPULSIVE, FOLLOWING ONLY SOME INSTRUCTIONS. PT STATES READINESS TO GO HOME. VSS. LUNG SOUNDS COARSE W/ EXP WHEEZE. OCCASSIONAL NONPRODUCTIVE COUGH, MORE FREQUENT AFTER ORAL INTAKE. PT REQUIRING FIRM INSTRUCTION W/ ASPIRATION PRECAUTIONS, PT IRRITABLE W/ PRECAUTIONS & DIET TEXTURE. PT ABD FIRM AND DISTENDED. INCONTINENT OF URINE T/O SHIFT, WEARING ATTENDS. PT WEAK AND UNSTEADY W/ MULTIPLE ATTEMPTS OOB W/ INABILITY TO SUPPORT SELF AT EDGE OF BED, PT ASSISTED BACK TO LAYING POSITION AND BED ALARM REAPPLIED. REPORT GIVEN TO DAY SHIFT RN.
--- NOTE | 2019-02-15 09:35 | NUR ---
AM NOTE. ASSUMED CARE OF PT APROX 0700, PT IS A&Ox4 WITH SOME LEFT SIDED WEAKNESS FROM PRIOR CVA/TIA. PT IS VERY HIGH ASPRIATION RISK AND IS SUPPOSED TO BE ON NECTAR THICK FLUIDS AND PUREE DIET. PT IS NONCOMPLIANT WITH DIET AND FLUID THICKNESS. PT IS VERY ANXIOUS TO D/C HOME AND REFUSES TO D/C TO SNF. ASSISTANT INFANT TEACHER INVOLVED WITH D/C PLANS. PT'S VS STABLE. HRR. L/S MOIST AND COARSE W/EXP WHEEZES T/O. PT IS ON RA WITH O2 SATS >90%. BT PRESENT AND NORMOACTIVE, ABD IS SLIGHTLY FIRM AND NONTENDER TO PALP. FAMILY AND S.O. AT THE BEDSIDE THIS AM. UPDATE ON PLAN OF CARE GIVEN. CALL LIGHT IN REACH, WILL CONTINUE TO MONITOR.
[2019-02-15] MEDS ORDERED: METO50 PO (11:12)
[2019-02-15] MEDS ORDERED: ABAT250V (11:13)
[2019-02-15] MEDS ORDERED: Florastor250 MG PO (11:13)
[2019-02-15] MEDS ORDERED: VANCOMYCIN ORAL SOLN PO (11:15)
[2019-02-15] MEDS ORDERED: CEFD300 PO (11:16)
[2019-02-15] MEDS ORDERED: POTCHL20ER PO (11:17)
--- NOTE | 2019-02-15 12:56 | NUR ---
PT D/C. PT D/C HOME WITH S.O. EDUCATION PROVIDED TO THE PT AND THE FAMILY ON D/C INSTRUCTIONS AND MEDICATIONS. PRINTED EDUCATION ALSO PROVIDED TO THE PT AND FAMILY. ALL QUESTIONS WERE ANSWERED BY THIS RN FOR THE FAMILY. PT STATED" I DON'T HAVE ANY QUESTIONS I JUST WANT TO GET THE HELL OUT OF HERE!" PT WAS ASKED MULTIPLE TIMES IF HE HAD ANY QUESTIONS/COMMENTS/CONCERNS PT DENIED. IV WAS REMOVED, ALL OF PT'S BELONGINGS WERE PACKED AND TAKEN BY THE FAMILY. MEDICATIONS CALLED INTO THE PHARMACY OF THE PT'S CHOICE. PT AND FAMILY DENIED ANY FURTHER QUESTIONS/COMMENTS/CONCERNS AT THIS TIME.
== END 2019-02-15 12:51 | disposition home health service (06) | DRG 438 ==
LOC: ER 11:41 → MEDS 18:50 → PCU 18:50 → ER 20:06 → MEDS 20:11 → PCU 02-07 06:31 → SURS 02-09 12:45 → MEDS 02-11 06:50 → PCU 02-11 10:17
PROVIDERS: Hospitalist; Internal Medicine; Physician Assistant; ADMIT Internal Medicine
DX: K85.90 Acute pancreatitis without necrosis or infection, unspecified (principal); J69.0 Pneumonitis due to inhalation of food and vomit; N17.0 Acute kidney failure with tubular necrosis; G93.40 Encephalopathy, unspecified; A04.72 Enterocolitis due to Clostridium difficile, not specified as recurrent; E87.0 Hyperosmolality and hypernatremia; R18.8 Other ascites; N18.3 Chronic kidney disease, stage 3 (moderate); I12.9 Hypertensive chronic kidney disease with stage 1 through stage 4 chronic kidney disease, or unspecified chronic kidney disease; E11.22 Type 2 diabetes mellitus with diabetic chronic kidney disease; E87.6 Hypokalemia; D64.9 Anemia, unspecified; Z66 Do not resuscitate; K74.60 Unspecified cirrhosis of liver; F17.210 Nicotine dependence, cigarettes, uncomplicated; Z86.73 Personal history of transient ischemic attack (TIA), and cerebral infarction without residual deficits; Z79.82 Long term (current) use of aspirin; Z79.4 Long term (current) use of insulin; Z79.899 Other long term (current) drug therapy
CPT/HCPCS: 0097U; 36415; 36600; 70450; 70551; 71045; 74177; 76705; 76770; 78582; 80048; 80053; 80069; 81001; 82140; 82248; 82330; 82550; 82803; 82947; 83690; 83735; 84100; 85025; 85379; 85610; 87086; 87324; 92526; 92610; 93005; 93010; 93880; 93970; 94640; 94760; 94762; 96361-59; 96374-59; 96375-59; 96376-59; 97110; 97162; 97166; 97530; 97535; 99285-25; A9540; A9558; C9113; J0360; J0610; J0696; J1170; J1630; J1644; J1650; J1940; J2060; J2405; J3480; J7030; J7060; J7120; P9046; Q9967

== ENCOUNTER 2019-06-22 12:57 | Day surgery (SDC) | payer MEDICARE ==
[~2019-06-22] VITALS: Ht 188 cm; Wt 90.9 kg
[~2019-06-22 12:57] MED LIST changes: +ABAT250V; +AMLODIPINE BESY10 MG PO; +ATOR80 PO; +CEFD300 PO; +Florastor250 MG PO; +METO50 PO; +NOVOLOG FL100 UNIT/1 SC; +Novolog100 UNIT/1; +POTCHL20ER PO; +TOUJEO MAX300 UNIT/1 SC; +VANCOMYCIN ORAL SOLN PO; +ZOLP10 PO
== END 2019-06-22 14:24 | disposition home or self-care (01) ==
LOC: ORSCSDS 12:57
PROVIDERS: Internal Medicine Gastroenterology
PROC: 0DB68ZX Excision of Stomach, Via Natural or Artificial Opening Endoscopic, Diagnostic (ICD-10-PCS; principal; 2019-06-22 14:15)
DX: I85.01 Esophageal varices with bleeding (principal); K76.6 Portal hypertension; K31.89 Other diseases of stomach and duodenum; K74.60 Unspecified cirrhosis of liver; E11.22 Type 2 diabetes mellitus with diabetic chronic kidney disease; I12.9 Hypertensive chronic kidney disease with stage 1 through stage 4 chronic kidney disease, or unspecified chronic kidney disease; N18.4 Chronic kidney disease, stage 4 (severe); Z86.73 Personal history of transient ischemic attack (TIA), and cerebral infarction without residual deficits; Z79.84 Long term (current) use of oral hypoglycemic drugs; Z79.4 Long term (current) use of insulin; Z79.899 Other long term (current) drug therapy
CPT/HCPCS: 82947; 88305; 88342; J2704

== ENCOUNTER → 2019-09-23 | Outpatient (CLI) | payer MEDICARE ==
[2019-09-23 20:13] LABS: Creatinine Urine 70.5 mg/dL (27.00-270.00)
[2019-09-23 20:14] LABS: Protein, Urine Quantitative 405.4 mg/dL (0.0-11.9)
== END ==
LOC: OLS 17:36 → LAB SHORT 17:36 → LAB FUT 09-14 14:30
PROVIDERS: Internal Medicine
DX: N18.2 Chronic kidney disease, stage 2 (mild) (principal)
CPT/HCPCS: 81050; 82570; 84156